=== PATIENT | female | born 1935 | race Caucasian/White ===

== ENCOUNTER 2018-04-26 09:34 | Observation (INO) | payer MEDICARE, OTHER ==
[~2018-04-26] VITALS: Ht 162.6 cm; Wt 62.7 kg
[2018-04-26 10:52] LABS: BASOPHILS % 0.2 % (0.0-1.0); EOSINOPHILS # (AUTO) 0.2 (0.0-0.4); EOSINOPHILS % 1.3 % (0.0-6.0); HEMATOCRIT 37.1 % (34.2-44.1); HEMOGLOBIN 12.2 g/dL (12.0-16.0); LYMPHOCYTES # (AUTO) 0.5 (1.0-3.2); LYMPHOCYTES % 2.5 % (18.0-39.1); MEAN CORPUSCULAR HEMOGLOBIN 29.3 pg (28-32); MEAN CORPUSCULAR HGB CONC 32.9 g/dL (31-35); MEAN CORPUSCULAR VOLUME 89.2 fL (81-99); NEUTROPHILS # (AUTO) 17.2 (2.1-6.9); NEUTROPHILS % 90.1 % (38.7-80.0); PLATELET COUNT 232 x10e3/uL (140-360); RED BLOOD COUNT 4.16 x10e6/uL (3.6-5.1); RED CELL DISTRIBUTION WIDTH 16.2 % (11.7-14.4)
[2018-04-26 10:56] LABS: INR 1.06; PARTIAL THROMBOPLASTIN TIME 27.4 seconds (23.8-35.5)
[2018-04-26 11:02] LABS: CLARITY,URINE CLEAR (CLEAR); COLOR,URINE YELLOW (YELLOW); KETONES,URINE NEGATIVE (NEGATIVE); LEUKOCYTE ESTERASE ,URINE TRACE (NEGATIVE); NITRITE,URINE NEGATIVE (NEGATIVE); PROTEIN,URINE DIPSTICK TRACE (NEGATIVE)
[2018-04-26 11:03] LABS: BILIRUBIN,URINE NEGATIVE (NEGATIVE); URINE UROBILINOGEN 0.2 mg/dL (0.2 - 1)
[2018-04-26 11:09] LABS: BACTERIA,URINE RARE /HPF; WBC,URINE (MAN) 0-5 /HPF (0-5)
[2018-04-26 11:14] LABS: ALANINE AMINOTRANSFERASE 11 IU/L (0-55); ALBUMIN 3.1 g/dL (3.5-5.0); ALBUMIN/GLOBULIN RATIO 1.1 (0.8-2.0); ALKALINE PHOSPHATASE 56 IU/L (40-150); BLOOD UREA NITROGEN 18 mg/dL (7-26); BUN/CREATININE RATIO 18 (6-25); CALCIUM 9.4 mg/dL (8.4-10.2); CARBON DIOXIDE 27 mmol/L (22-29); CHLORIDE 107 mmol/L (98-107); CREATINE KINASE 66 IU/L (29-168); CREATININE, SERUM 0.99 mg/dL (0.57-1.11); EST GLOMERULAR FILTRATION RATE 53 ML/MIN (60-); GLUCOSE 121 mg/dL (74-118); SODIUM 142 mmol/L (136-145)
--- NOTE | 2018-04-26 11:27 | Diagnostic Imaging Report ---
PROCEDURE: A single AP view of the chest. COMPARISON: None. INDICATIONS: PASSED OUT, DEHYDRATED FINDINGS: Exam limited by patient rotation. Lines/tubes: None. Lungs: The lungs are well inflated. Mild prominence of the interstitial markings bilaterally, which may reflect chronic interstitial changes. There is no evidence of consolidation or overt pulmonary edema. Pleura: There is no pleural effusion or pneumothorax. Heart and mediastinum: Cardiac silhouette is unremarkable. Pulmonary vasculature is normal. Bones: No acute bony abnormality. IMPRESSION: 1. No acute cardiopulmonary abnormalities. Abdoul Whiteside M.D. Dictated by: Abdoul Whiteside M.D. on 04/26/2018 at 11:32 Electronically approved by: Abdoul Whiteside M.D. on 04/26/2018 at 11:32
[2018-04-26] MEDS ORDERED: CEFTRIAXONE SOD 1 GM VIAL IV SCH (11:30)
[2018-04-26] MEDS ORDERED: ARICEPT5 MG (11:52)
[2018-04-26] MEDS ORDERED: CRESTOR20 MG (11:52)
[2018-04-26] MEDS ORDERED: NITROFURANTOIN100 MG (11:52)
[2018-04-26] MEDS ORDERED: CLOPIDOGREL75 MG (11:52)
[2018-04-26] MEDS ORDERED: PEPCID20 MG PO (11:56)
[2018-04-26] MEDS ORDERED: ASPIR 8181 MG PO (11:56)
--- NOTE | 2018-04-26 12:11 | Diagnostic Imaging Report ---
History:Weakness Comparison studies:None Technique: Axial images were obtained from the skull base to the vertex. Coronal and sagittal images reconstructed from the axial data. Intravenous contrast: None Findings: Scalp/skull: No abnormalities. Extra-axial spaces: No masses. No fluid collections. Brain sulci: Mildly prominent. Ventricles: Mild compensatory dilatation. No hydrocephalus. Parenchyma: Scattered small hypodensities in the supratentorial white matter are small vessel ischemic changes. Cortical-based hypodensity with associated volume loss at the right frontal pole/orbitofrontal gyrus and right temporal pole No masses, hemorrhage, acute or chronic cortical vascular insults. Sellar/suprasellar region: No abnormalities. Craniocervical junction: Patent foramen magnum. No Chiari one malformation. Incidental findings: Atherosclerotic calcifications in the carotid siphons . Impression: No acute abnormalities. Chronic findings: 1. Mild generalized volume loss. 2. Mild supratentorial white matter small vessel ischemic changes. 3. Encephalomalacia at the right orbitofrontal gyrus and right temporal pole related to remote insult Signed by: DR Jerry Russell M.D. on 04/26/2018 12:07 PM
[2018-04-26] MEDS ORDERED: ONDANSETRON HCL INJ 2 MG/ML VIAL IV PRN (12:30)
[2018-04-26] MEDS: SODIUM CHLORIDE 0.9% 1000ML 1,000 ML IV SCH ×2 (12:56→22:24)
[2018-04-26] MEDS ORDERED: CIPROFLOXACIN 200 MG/D5W 100ML 100 ML IV SCH (13:00)
--- NOTE | 2018-04-26 13:48 | History and Physical ---
HISTORY OF PRESENT ILLNESS: The patient is 83-year-old female who had a past medical history positive for apparently syncopal episodes. She is a smoker also. Patient has history of recurrent UTIs. She was seen to leave facility, smoking outside when she fainted according to the family. They did not see any seizure activity or biting the tongue or urinary incontinence. REVIEW OF SYSTEMS CARDIOVASCULAR: No chest pain or palpitation. RESPIRATORY: No shortness of breath, no cough. GASTROINTESTINAL: No nausea, vomiting, diarrhea. GENITOURINARY: No frequency, no dysuria. ALLERGIES: SHE IS APPARENTLY ALLERGIC TO SULFA DRUGS. SOCIAL HISTORY: She smokes. She does not drink alcohol. PAST MEDICAL HISTORY: She does have history of hypertension but she was taking off blood pressure medications. PHYSICAL EXAMINATION VITAL SIGNS: Blood pressure 106/61, temperature 97.6, heart rate 80 per minute, respiratory rate 20 per minute. Oxygen saturation 97%. HEART: Shows regular rhythm. Normal S1, S2 sounds. LUNGS: Clear bilaterally. ABDOMEN: Soft. EXTREMITIES: Show no evidence of cyanosis, edema or trauma. NEUROLOGIC: Alert, oriented x3. No motor deficits. LABORATORY DATA: We have a CBC--white blood count 19,000, hemoglobin 30.2, hematocrit 37.1, platelet count 232. White blood count 19.04. On the BMP--sodium 142, potassium 4.0, chloride 107, CO2 27, BUN 18, creatinine 0.99, glucose 121. Calcium 9.4. Total bilirubin 1.1. AST 25, ALT 11, alkaline phosphatase 56, creatinine kinase 66. Troponin 0.001. Total protein 5.9. Albumin 3.1, globulin 2.8. PT 13.0, INR 1.06, PTT 27.4. The urinalysis showed leukocytes and red blood cells, pH of 8.0. Urine culture is pending. CT of the head and chest x-ray has been done. There is no acute abnormality on the CT of the head except some non-generalized polar loss. Mild supratentorial white matter small vessel ischemic changes. Encephalomalacia on the right orbital frontal gyrus and right temporal pole related to remote insult. Chest x-ray showed no acute cardiopulmonary abnormality. FINAL IMPRESSION 1. Syncopal episode. 2. Sepsis secondary to urinary tract infection. PLAN OF TREATMENT: We are going to start her on ciprofloxacin 250 mg IV twice a day. Continue normal saline 75 mL an hour. Orthostatic blood pressure also. Diet will be regular diet. Going to get a neurology consult with Dr. Booth. Questions have been discussed with the family at the bedside. All the questions have been answered. Time spent around 45 to 50 minutes. Job#: [id number] [facility]
[2018-04-26 15:20] VITALS: BP 98/50
--- NOTE | 2018-04-26 15:27 | History and Physical ---
ADDENDUM TO HISTORY AND PHYSICAL We are going to order an echocardiogram and carotid Doppler for elevated blood pressure, and she is going to be on telemetry, of course. She also has a history of coronary artery disease, and she had a stent placement. We are going to resume the home medications, which include: 1. Aspirin 81 mg daily. 2. Plavix 75 mg daily. 3. Aricept 10 mg daily. 4. Pepcid 20 mg daily. 5. IV fluids at normal saline 75 mL an hour. We are going to discontinue the Rocephin because the patient's urine culture done by the other physician showed that it was resistant to ceftriaxone. We are going to discontinue the Cipro also because of interaction with Aricept. We are going to start meropenem instead. We are going to use 500 mg IV q.6 h. Job#: [id number]
[2018-04-26 16:00] VITALS: BP 98/50
[2018-04-26 16:33] VITALS: BP 98/50
[2018-04-26] MEDS: MEROPENEM 500 MG VIAL IV SCH (17:00)
[2018-04-26] MEDS ORDERED: MEROPENEM 500MG 500 MG in SODIUM CHLORIDE 0.9% 50ML 50 ML IV SCH (18:00)
[2018-04-26] MEDS: NICOTINE 14 MG/EA PATCH TOP SCH (18:12)
--- NOTE | 2018-04-26 19:13 | Consultation ---
DATE OF CONSULTATION: April 26, 2018 NEUROLOGY CONSULTATION HISTORY OF PRESENT ILLNESS: Ms. Cancino is an 83-year-old woman with past medical history significant for hyperlipidemia, coronary artery disease, dementia, and multiple urinary tract infections, who presented to the emergency center at [facility] on April 26, 2018, with syncope versus seizure. The patient reports poor sleep the night prior to admission. She reports frequent awakening to use the restroom. On the morning of admission, the patient's granddaughter came to see her. The patient was still in bed, asleep, which was unusual for her. As she tried to awaken her grandmother, Ms. Cancino's granddaughter noted the patient was somnolent and more confused than is her baseline. The granddaughter called her mother, Ms. Cancino's daughter, who came over to the patient's apartment. Not only did she observe Ms. Cancino to be somnolent and more confused than is her baseline, the daughter noted tremulousness and generalized weakness. Ms. Cancino endorsed abdominal pain, nausea, and vomiting. Shortly after the daughter's arrival, she and Ms. Cancino went to sit outside so the patient could smoke a cigarette. As they were sitting in the chairs, Ms. Cancino informed her daughter she felt like she was going to throw up. Less than 1 minute later, the patient slumped over in the chair. There was no stiffening or shaking of the extremities. There was no tongue biting or bladder/bowel incontinence. Ms. Cancino remained slumped over in her chair, unresponsive for approximately 30 seconds. Once the patient regained consciousness, she was very confused. This resolved after approximately 20 to 25 minutes. The patient's daughter notified emergency medical services immediately after the patient slumped over in her chair. Ms. Cancino was transported to the emergency center at [facility] via ambulance for further evaluation. Upon arrival in the emergency center, the patient was afebrile with a blood pressure of 97/51 mmHg, a pulse of 80 beats per minute, and an oxygen saturation of 93% on room air. The patient's neurological examination was documented as being nonfocal. Laboratory data revealed an elevated white blood cell count with a left shift. A urinalysis was suspicious for a urinary tract infection. A CT of the brain without contrast was performed and did not show evidence of recent large territorial ischemia or hemorrhage. Ms. Cancino was admitted to [facility] under observation status for further evaluation and treatment of her symptoms. Ms. Cancino does not report a history of febrile seizures. There is no known family history of seizures. The patient does endorse a prior head injury with loss of consciousness occurring approximately 15 years ago. There is no prior history of meningitis or encephalitis. The patient's daughters report Ms. Cancino has experienced similar events as described above at least 3 times since October 2017. These events generally occur in the setting of a urinary tract infection with dehydration. REVIEW OF SYSTEMS: Nausea, vomiting, abdominal pain, urinary urgency, confusion, drowsiness, and generalized weakness. Otherwise, a 12-point review of systems is negative. PAST MEDICAL HISTORY: Hyperlipidemia, coronary artery disease, multiple urinary tract infections, gastroesophageal reflux disease, leukoplakia, squamous cell carcinoma, dementia. PAST SURGICAL HISTORY: Bilateral cataract removal, cardiac catheterizations with 2 cardiac stents placed. PAST HOSPITALIZATIONS: Surgeries/procedures as listed, childbirth times 8, multiple urinary tract infections. FAMILY HISTORY: Patient's paternal and maternal grandparents are . Their medical histories are unknown. Ms. Cancino's father is from coronary artery disease with myocardial infarction. The patient's mother is . Her medical history is unknown. Ms. Cancino had one brother who is from a stroke. A second brother is alive and has coronary artery disease. Ms. Cancino had one son and 7 daughters. The son is from renal carcinoma. All of her daughters are alive and healthy. SOCIAL HISTORY: The patient is . She is a retired special education secretary. Ms. Cancino endorses current tobacco use. She has smoked 1/2 pack per day for the past for 60-plus years. The patient endorses prior occasional alcohol use. However, she no longer consumes alcohol. Patient does not report current or prior recreational drug use. HOME MEDICATIONS 1. Aspirin 81 mg by mouth daily. 2. Plavix 75 mg by mouth daily. 3. Donepezil 5 mg by mouth daily. 4. Pepcid 20 mg by mouth daily. 5. Nitrofurantoin 100 mg. 6. Rosuvastatin 20 mg by mouth at bedtime daily. ALLERGIES: SULFA. NO KNOWN FOOD ALLERGIES. NO KNOWN ALLERGIES TO LATEX. NO KNOWN ALLERGIES TO IODINE OR OTHER CONTRAST MATERIALS. PHYSICAL EXAMINATION VITAL SIGNS: Height 64 inches and weight 135 pounds. BMI 23.2 kg per meter squared. Blood pressure 98/50 mmHg. Pulse 72 beats per minute. Respiratory rate 20 breaths per minute. Oxygen saturation 95% on room air. GENERAL: Patient is awake and alert, does not appear distressed. HEENT: Normocephalic and atraumatic. Pupils are surgical. Moist mucous membranes. NECK: Supple. No appreciable thyromegaly. No appreciable carotid bruits. CARDIOVASCULAR: S1, S2, regular rate and rhythm. No murmurs, rubs, or gallops. RESPIRATORY: Clear to auscultation bilaterally. No wheezes, rhonchi or rales. EXTREMITIES: The skin is warm and dry. No clubbing, cyanosis, or edema. The posterior tibial and dorsalis pedis pulses are 2+ and symmetric. SKIN: No rashes or lesions. NEUROLOGIC EXAMINATION MEMORY/ATTENTION: The patient is awake, alert, and oriented to person, place (hospital, city, county, state), time (month and year), and situation. CRANIAL NERVES: Cranial nerve I: Not tested. Cranial nerves II, III, IV, and : Pupils are surgical. Extraocular movements intact. No nystagmus. Cranial nerve V: Sensation to light touch and pinprick is intact in the bilateral V1 through V3 distributions. Strength of the temporalis and masseter muscles is within normal limits. Cranial nerve VII: The face is symmetric as are all facial movements. Strength is within normal limits. Cranial nerve VIII: Hearing is intact to finger rub bilaterally. Cranial nerves IX and X: The soft palate elevates equally and symmetrically. Cranial nerve XI: Normal strength of the bilateral sternocleidomastoid and trapezius muscles. Cranial nerve XII: The tongue protrudes midline and moves symmetrically from side to side. STRENGTH: Bulk is normal. Strength is 5/5 in the bilateral deltoids, biceps, triceps, wrist flexors and extensors, finger flexors and extensors, intrinsic hand muscles, hip flexors, knee flexors and extensors, ankle dorsiflexion and plantar flexion, and intrinsic foot muscles. Tone is normal. DTRs: Deep tendon reflexes are 2+ and symmetric at the triceps, biceps, brachioradialis, and patellas. Deep tendon reflexes are absent and symmetric at the Achilles. Plantar responses are flexor bilaterally. SENSATION: Sensation is intact to light touch and pinprick in both arms and both legs. CEREBELLAR: Vbllst-xyal-djotwg and heel-harding movements are intact without dysmetria or other impairment. GAIT: Deferred. SPEECH: Spontaneous speech is normal without appreciable dysarthria or aphasia. Repetition is intact. INVOLUNTARY MOVEMENTS: None. PRONATOR DRIFT: None. LABORATORY DATA: Sodium 142, potassium 4.0, chloride 107, carbon dioxide 27, anion gap 12.0, BUN 18, creatinine 0.99, estimated GFR 53. VOB-mp-cpaiawanra ratio 18. Glucose 121, calcium 9.4, total bilirubin 11.1, AST 25, ALT 11, alkaline phosphatase 56. Total protein 5.9, albumin 3.1, globulin 2.8, furraon-ms-nxcagwjm ratio 1.1. Creatine kinase 66, CK-MB 0.70, troponin I less than 0.001. The CBC with differential and platelets reveals a white blood cell count of 19.04 with 90.1% neutrophils, 2.5% lymphocytes, 5.0% monocytes, 1.3% eosinophils, and 0.2% basophils. The hemoglobin and hematocrit are 12.2 and 37.1, respectively. The platelet count is 232. PT 13.0, INR 1.06, PTT 27.4. Urinalysis is significant for pH 8, trace protein, trace leukocyte esterase, and 6-10 red blood cells. DIAGNOSTIC STUDIES 1. Electrocardiogram, 04/26/2018: Sinus rhythm at 71 beats per minute with occasional preventricular contractions. 2. Chest x-ray, 04/26/2018: No acute cardiopulmonary abnormalities. 3. CT of the brain without contrast, 04/26/2018: On my review, there is no evidence of recent large territorial ischemia, hemorrhage, mass, or mass effect. There is encephalomalacia at the right orbital frontal gyrus and right temporal pole, probably a prior ischemic stroke. There is mild diffuse cerebral atrophy. There are findings compatible with mild to moderate chronic small vessel ischemic disease. ASSESSMENT AND PLAN: Ms. Cancino is an 83-year-old woman with past medical history as detailed, admitted to [facility] on April 26, 2018, with a possible seizure. At present, her neurological examination is nonfocal. Her laboratory data and other diagnostic studies have been reviewed and are documented above. It is possible the events experienced by the patient since October 2017 are seizures. The period of unresponsiveness lasts for approximately 30 seconds, which is atypical of a syncopal event. Once she regains consciousness, the patient is often very confused for 20 to 25 minutes. This period of confusion may represent a postictal phase. Prolonged confusion after a syncopal event is uncommon. Lastly, each of the events have occurred in the setting of a urinary tract infection. An infection of any sort is known to lower the seizure threshold. RECOMMENDATIONS 1. An MRI of the brain without contrast will be ordered to evaluate for structural anomalies causing the patient's seizures. Ativan 0.5 mg IV once will be operator specialist communications for the MRI of the brain. 2. A routine EEG will be ordered. 3. At the request of the patient's nurse, an order for a nicotine patch 14 mg topically daily will be placed. 4. Defer treatment of the remaining medical comorbidities to the primary and other services. Thank you for this consultation. I will continue to follow this patient while she remains in the hospital. Time spent: 70 minutes. Job#: [id number] CORNELIUS ROMANO
[2018-04-26 19:40] VITALS: BP 146/66
[2018-04-26 19:47] LABS: CREATINE KINASE MB 1.1 ng/mL (0-5.0)
[2018-04-26] MEDS ORDERED: DONEPEZIL HCL 5 MG TAB PO SCH (21:00)
[2018-04-26 22:46] VITALS: BP 146/66
[2018-04-27] MEDS: MEROPENEM 500 MG VIAL IV SCH ×5 (00:14→17:42)
[2018-04-27 00:55] VITALS: BP 99/84
[2018-04-27 05:00] VITALS: BP 144/79
[2018-04-27 05:49] LABS: BASOPHILS % 0.2 % (0.0-1.0); EOSINOPHILS % 6.2 % (0.0-6.0); HEMATOCRIT 31.9 % (34.2-44.1); HEMOGLOBIN 10.6 g/dL (12.0-16.0); LYMPHOCYTES # (AUTO) 1.3 (1.0-3.2); LYMPHOCYTES % 7.7 % (18.0-39.1); MEAN CORPUSCULAR HEMOGLOBIN 29.4 pg (28-32); MEAN CORPUSCULAR HGB CONC 33.2 g/dL (31-35); MEAN CORPUSCULAR VOLUME 88.6 fL (81-99); MONOCYTES # (AUTO) 0.7 (0.2-0.8); MONOCYTES % 4.3 % (4.4-11.3); NEUTROPHILS # (AUTO) 13.2 (2.1-6.9); NEUTROPHILS % 81.1 % (38.7-80.0); PLATELET COUNT 191 x10e3/uL (140-360); RED CELL DISTRIBUTION WIDTH 16.7 % (11.7-14.4)
[2018-04-27 06:24] LABS: CREATINE KINASE 62 IU/L (29-168)
[2018-04-27 06:48] LABS: ANION GAP 11.9 mmol/L (8-16); BLOOD UREA NITROGEN 16 mg/dL (7-26); BUN/CREATININE RATIO 19 (6-25); CALCIUM 8.2 mg/dL (8.4-10.2); CARBON DIOXIDE 23 mmol/L (22-29); CHLORIDE 109 mmol/L (98-107); CREATININE, SERUM 0.84 mg/dL (0.57-1.11); EST GLOMERULAR FILTRATION RATE > 60 ML/MIN (60-); GLUCOSE 91 mg/dL (74-118); POTASSIUM 3.9 mmol/L (3.5-5.1); SODIUM 140 mmol/L (136-145)
[2018-04-27] MEDS ORDERED: CLOPIDOGREL BISULFATE 75 MG TAB PO SCH (07:30)
[2018-04-27 08:24] VITALS: BP 103/55
[2018-04-27] MEDS ORDERED: LORAZEPAM INJ 2 MG/ML VIAL IV NR (08:45)
[2018-04-27 09:00] VITALS: BP 103/55
[2018-04-27] MEDS: LORAZEPAM INJ 2 MG/ML VIAL IV ONE ×2 (09:00→09:02)
[2018-04-27] MEDS ORDERED: FAMOTIDINE 20 MG TAB PO SCH (09:00)
[2018-04-27] MEDS ORDERED: ASPIRIN 81 MG CHEW TAB PO SCH (09:00)
[2018-04-27] MEDS: NICOTINE 14 MG/EA PATCH TOP SCH (10:29)
--- NOTE | 2018-04-27 10:49 | Diagnostic Imaging Report ---
History: Possible seizure Comparison studies: CT head 04/26/2018 Technique: Sagittal T2; axial DWI, FLAIR, MPGR, T1, Coronal FLAIR. Intravenous contrast: None Findings: Scalp: Normal in signal . No masses . Bone marrow: Normal in signal intensity. Extra-axial: No masses, no fluid collections. Brain sulci: Mildly prominent diffusely. Moderately prominent bilateral sylvian fissures. Ventricles: Mildly prominent more significant at the temporal horns . No hydrocephalus . Parenchyma: Cortical based T2/flair hyperintensity with associated volume loss at the right frontal and temporal poles. Punctate hemosiderin stain in the left frontal pole. Scattered T2/flair hyperintensities of the periventricular and deep white matter. Similar changes at the polly. No masses, hemorrhage or acute vascular insults. Suprasellar region: No abnormalities. Craniocervical junction: No abnormalities. Patent foramen magnum. No Chiari one malformation. Vessels: Normal flow-voids in the arteries and sinuses. Fluid at the posterior aspect of the left mastoid air cells, related to nonspecific inflammatory changes. Bilateral cataract surgery changes. IMPRESSION: 1. No acute abnormalities. 2. Mild to moderate chronic microvascular ischemic changes of the white matter. 3. Moderate volume loss at the bilateral temporal lobes, which can be seen in some dementias such as Alzheimer's. 4. Encephalomalacia at the right orbitofrontal gyrus, right superior frontal gyrus and right temporal pole related to remote insult. 5. Nonspecific mild inflammatory changes of the left mastoid air cells. Signed by: DR Jerry Russell M.D. on 04/27/2018 10:46 AM
[2018-04-27 11:43] VITALS: BP 112/59
[2018-04-27] MEDS: SODIUM CHLORIDE 0.9% 1000ML 1,000 ML IV SCH (15:01)
--- NOTE | 2018-04-27 16:45 | Progress Note ---
DATE: April 27, 2018 INTERNAL MEDICINE PROGRESS NOTE SUBJECTIVE: The patient came in with a syncopal episode. The workup is in progress right now. She is feeling a lot better. OBJECTIVE VITAL SIGNS: Blood pressure 112/59. Temperature 96.9. Heart rate 71 per minute. Respiratory rate is 18 per minute. Oxygen saturation 94%. HEART: Regular rhythm. No murmur. No extra sounds. LUNGS: Clear bilaterally. ABDOMEN: Soft. EXTREMITIES: Show no evidence of cyanosis, edema or trauma. FINAL IMPRESSION: 1. Syncopal episode, rule out seizures. 2. Urinary tract infection with possible sepsis. 3. Coronary artery disease, status post stent. PLAN OF TREATMENT: EEG is in progress Dr. Booth will read the EEG and decide whether or not she needs to be discharged on an antiseizure medication. Echocardiogram and carotid Doppler have been done and the report is pending. In the meantime continue telemetry. Continue orthostatic blood pressure management and continue aspirin 81 mg daily. Plavix 75 mg daily. Donazepril mg daily. Pepcid 20 mg daily. She is on meropenem 500 mg IV q.6 hours because of the UTI. Nicotine [address] Titus will be covering for me starting today at 4:30 p.m. until April 30 at 7 p.m. Job#: [id number]
[2018-04-27 17:16] VITALS: BP 129/64
--- NOTE | 2018-04-27 18:35 | Electroencephalogram ---
DATE OF STUDY: April 27, 2018 REQUESTING PHYSICIAN: Dr. Yesy Booth PATIENT HISTORY: This 83-year-old woman with a history of syncope versus seizure is having an EEG for evaluation of epileptiform activity. The patient is not taking any medications that might affect the EEG. TECHNIQUE: This is a routine, portable EEG, recorded digitally, using the international 10/20 electrode placement system, and done in the inpatient setting with the patient awake. The EEG is adequate for interpretation. DESCRIPTION: Well organized, well sustained, 9 to 10 Hz activity is best seen symmetrically in the posterior head regions. No focal or epileptiform activity is recorded. Sleep is not recorded. Photic stimulation does not produce a driving response. Hyperventilation is not performed. INTERPRETATION: This is a normal EEG with the patient awake. No epileptiform discharges are seen. Job#: [id number] DG MTDD
== END 2018-04-27 18:04 | disposition home or self-care (01) ==
LOC: ER 09:34 → ERHOLD 12:21 → IMCU 14:09
PROVIDERS: ADMIT Internal Medicine; ATTEND Internal Medicine
DX: R55 Syncope and collapse (principal); I25.10 Atherosclerotic heart disease of native coronary artery without angina pectoris; N30.00 Acute cystitis without hematuria; F17.210 Nicotine dependence, cigarettes, uncomplicated; Z87.440 Personal history of urinary (tract) infections; I10 Essential (primary) hypertension; E78.5 Hyperlipidemia, unspecified; Z95.5 Presence of coronary angioplasty implant and graft; Z88.2 Allergy status to sulfonamides; F03.90 Unspecified dementia, unspecified severity, without behavioral disturbance, psychotic disturbance, mood disturbance, and anxiety
CPT/HCPCS: 36415 ×2; 70450; 70551; 71045; 80048; 80053; 81001; 82550 ×2; 82553 ×2; 84484 ×2; 85025 ×2; 85610; 85730; 87086; 93005 ×2; 93306; 93880; 95812; 96360; 97161; 99285; G0378 ×2; G8978; G8979; G8980; J0696; J2060; J2185 ×2; J2405; J7030

== ENCOUNTER 2018-05-16 02:34 | Inpatient (IN) | payer MEDICARE, OTHER ==
[~2018-05-16] VITALS: Ht 162.6 cm; Wt 64.1 kg
[2018-05-16] VITALS (7 sets, daily range): BP systolic 95–116; BP diastolic 48–57
[~2018-05-16 02:34] MED LIST: ARICEPT5 MG PO; ASPIR 8181 MG PO; CLOPIDOGREL75 MG PO; CRESTOR20 MG PO; NITROFURANTOIN100 MG; PEPCID20 MG PO
[2018-05-16] MEDS ORDERED: ONDANSETRON HCL INJ 2 MG/ML VIAL IV STA (02:43)
[2018-05-16] MEDS ORDERED: ACETAMINOPHEN 1000 MG/100 ML IV STA (02:43)
[2018-05-16] MEDS ORDERED: SODIUM CHLORIDE 0.9% 1000ML 1,000 ML IV ONE ×2 (02:45→04:00)
[2018-05-16] MEDS ORDERED: ALBUTEROL/IPRATROPIUM 3 ML NEB NEB ONE (03:00)
[2018-05-16 03:07] LABS: BASOPHILS # (AUTO) 0.1 (0.0-0.1); BASOPHILS % 0.3 % (0.0-1.0); EOSINOPHILS # (AUTO) 1.7 (0.0-0.4); EOSINOPHILS % 10.4 % (0.0-6.0); HEMATOCRIT 38.6 % (34.2-44.1); HEMOGLOBIN 12.9 g/dL (12.0-16.0); LYMPHOCYTES # (AUTO) 0.8 (1.0-3.2); LYMPHOCYTES % 4.6 % (18.0-39.1); MEAN CORPUSCULAR HEMOGLOBIN 29.4 pg (28-32); MEAN CORPUSCULAR HGB CONC 33.4 g/dL (31-35); MEAN CORPUSCULAR VOLUME 87.9 fL (81-99); MONOCYTES # (AUTO) 0.7 (0.2-0.8); MONOCYTES % 4.2 % (4.4-11.3); NEUTROPHILS # (AUTO) 13.2 (2.1-6.9); NEUTROPHILS % 80.2 % (38.7-80.0); PLATELET COUNT 226 x10e3/uL (140-360); RED BLOOD COUNT 4.39 x10e6/uL (3.6-5.1); RED CELL DISTRIBUTION WIDTH 16.4 % (11.7-14.4)
[2018-05-16 03:33] LABS: ALANINE AMINOTRANSFERASE 13 IU/L (0-55); ALBUMIN 3.4 g/dL (3.5-5.0); ALBUMIN/GLOBULIN RATIO 1.1 (0.8-2.0); ALKALINE PHOSPHATASE 57 IU/L (40-150); ANION GAP 15.5 mmol/L (8-16); BLOOD UREA NITROGEN 20 mg/dL (7-26); BUN/CREATININE RATIO 24 (6-25); CALCIUM 9.1 mg/dL (8.4-10.2); CARBON DIOXIDE 25 mmol/L (22-29); CHLORIDE 106 mmol/L (98-107); CREATINE KINASE 35 IU/L (29-168); CREATININE, SERUM 0.83 mg/dL (0.57-1.11); EST GLOMERULAR FILTRATION RATE > 60 ML/MIN (60-); GLUCOSE 98 mg/dL (74-118); POTASSIUM 3.5 mmol/L (3.5-5.1); SODIUM 143 mmol/L (136-145)
[2018-05-16 03:39] LABS: CLARITY,URINE CLEAR (CLEAR); COLOR,URINE YELLOW (YELLOW)
[2018-05-16 03:40] LABS: BILIRUBIN,URINE NEGATIVE (NEGATIVE); KETONES,URINE TRACE (NEGATIVE); LEUKOCYTE ESTERASE ,URINE 1+ (NEGATIVE); NITRITE,URINE NEGATIVE (NEGATIVE); PROTEIN,URINE DIPSTICK NEGATIVE (NEGATIVE); URINE UROBILINOGEN 0.2 mg/dL (0.2 - 1); WBC,URINE (MAN) 21-50 /HPF (0-5)
[2018-05-16 03:41] LABS: BACTERIA,URINE RARE /HPF; EPITHELIAL CELLS,URINE RARE /LPF; RBC,URINE 0-5 /HPF (0-5); TRANSITIONAL EPI CELLS,URINE RARE
[2018-05-16 03:49] LABS: EOSINOPHILS % (MANUAL) 14 % (0-7); LYMPHOCYTES % (MANUAL) 9 % (19-48); MONOCYTES % (MANUAL) 1 % (3.4-9.0); NEUTROPHILS % (MANUAL) 76 % (40-74)
--- NOTE | 2018-05-16 03:49 | Diagnostic Imaging Report ---
EXAMINATION: CHEST SINGLE (PORTABLE) INDICATION: Fever. COMPARISON: 04/26/2018 FINDINGS: TUBES and LINES: None. LUNGS: Lungs are well inflated. There are bibasilar atelectasis. There is mild prominence of the central pulmonary vasculature, consistent with pulmonary venous congestion. Biapical scarring present. PLEURA: No pleural effusion or pneumothorax. HEART AND MEDIASTINUM: Cardiac size is mildly enlarged. There are atherosclerotic calcifications within the aorta. BONES AND SOFT TISSUES: No acute osseous lesion. Soft tissues are unremarkable. UPPER ABDOMEN: No free air under the diaphragm. IMPRESSION: No acute thoracic abnormality. Signed by: Dr. Fabio Boswell M.D. on 05/16/2018 3:46 AM
[2018-05-16 03:50] LABS: PLATELET ESTIMATE ADEQUATE; PLATELET MORPHOLOGY COMMENT NORMAL; RBC MORPHOLOGY COMMENT NORMAL
[2018-05-16] MEDS ORDERED: ALBUTEROL/IPRATROPIUM 3 ML NEB NEB PRN (04:00)
[2018-05-16] MEDS ORDERED: ONDANSETRON HCL INJ 2 MG/ML VIAL IV PRN (04:00)
[2018-05-16] MEDS: CEFTRIAXONE SOD 1 GM VIAL IV SCH (04:26)
[2018-05-16] MEDS ORDERED: SODIUM CHLORIDE 0.9% 1000ML 0 ML ONE (05:38)
[2018-05-16] MEDS: NICOTINE 14 MG/EA PATCH TOP SCH (09:00)
[2018-05-16] MEDS: ASPIRIN 81 MG CHEW TAB PO SCH (14:00)
[2018-05-16] MEDS: CLOPIDOGREL BISULFATE 75 MG TAB PO SCH (14:00)
[2018-05-16] MEDS ORDERED: IOPAMIDOL 370 MG/ML 200 ML INFUS..BTL INJ ONE (17:31)
[2018-05-16] MEDS ORDERED: SODIUM CHLORIDE 0.9% 50ML 50 ML ONE (17:31)
--- NOTE | 2018-05-16 17:59 | Diagnostic Imaging Report ---
PROCEDURE: CT ABDOMEN AND PELVIS WITH CONTRAST TECHNIQUE: The abdomen and pelvis were scanned utilizing a multidetector helical scanner from the diaphragm to the lesser trochanter after the IV administration of 100 cc of Isovue 370 and the oral administration of water. Coronal and sagittal multiplanar reformations were obtained. COMPARISON: None. INDICATIONS: lower abdominal pain FINDINGS: Somewhat limited examination due to motion artifact. LOWER THORAX: Bibasilar atelectasis HEPATOBILIARY: No focal hepatic lesions. No radiopaque gallstones. The common bile duct is prominent, measuring 1.1 cm. SPLEEN: No splenomegaly. PANCREAS: No focal masses. The pancreatic duct is prominent, but it is visible all the way to the level of the ampulla. ADRENALS: No adrenal nodules. KIDNEYS/URETERS: No hydronephrosis, stones, or solid mass lesions. There are scarlike opacities in both kidneys. A surgical clip adjacent to the left kidney suggests prior renal surgery. Correlate with history. PELVIC ORGANS/BLADDER: The bladder is collapsed due to the presence of a Bueno catheter. PERITONEUM / RETROPERITONEUM: No free air or fluid. LYMPH NODES: No lymphadenopathy. VESSELS: Severe atherosclerotic calcifications of the aorta and its branches. There is mild ectasia of the infrarenal abdominal aorta measuring up to 2.4 cm. GI TRACT: No distention or wall thickening. There are numerous sigmoid diverticula, but no evidence of acute inflammation. The appendix is normal. 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 Degenerative changes of the right hip. IMPRESSION: No specific findings to account for the patient's lower abdominal pain. The common bile duct is mildly dilated, measuring 1.1 cm. Consider right upper quadrant ultrasound to evaluate for the presence of gallstones. Dictated by: Philip Sinclair M.D. on 05/16/2018 at 18:05 Electronically approved by: Philip Sinclair M.D. on 05/16/2018 at 18:05
[2018-05-16] MEDS: DONEPEZIL HCL 5 MG TAB PO SCH (19:34)
[2018-05-17] VITALS (8 sets, daily range): BP systolic 118–137; BP diastolic 56–63
[2018-05-17] MEDS: CEFTRIAXONE SOD 1 GM VIAL IV SCH (04:20)
[2018-05-17 05:01] LABS: BASOPHILS # (AUTO) 0.1 (0.0-0.1); BASOPHILS % 0.5 % (0.0-1.0); EOSINOPHILS # (AUTO) 6.9 (0.0-0.4); EOSINOPHILS % 47.1 % (0.0-6.0); HEMATOCRIT 32.1 % (34.2-44.1); HEMOGLOBIN 10.6 g/dL (12.0-16.0); LYMPHOCYTES # (AUTO) 1.9 (1.0-3.2); LYMPHOCYTES % 13.2 % (18.0-39.1); MEAN CORPUSCULAR HEMOGLOBIN 29.9 pg (28-32); MEAN CORPUSCULAR VOLUME 90.4 fL (81-99); MONOCYTES # (AUTO) 0.6 (0.2-0.8); MONOCYTES % 4.1 % (4.4-11.3); NEUTROPHILS # (AUTO) 5.1 (2.1-6.9); NEUTROPHILS % 34.8 % (38.7-80.0); PLATELET COUNT 204 x10e3/uL (140-360); RED BLOOD COUNT 3.55 x10e6/uL (3.6-5.1); RED CELL DISTRIBUTION WIDTH 16.8 % (11.7-14.4)
[2018-05-17 05:35] LABS: ALANINE AMINOTRANSFERASE 11 IU/L (0-55); ALBUMIN 2.6 g/dL (3.5-5.0); ALKALINE PHOSPHATASE 43 IU/L (40-150); ANION GAP 11.1 mmol/L (8-16); BLOOD UREA NITROGEN 18 mg/dL (7-26); BUN/CREATININE RATIO 22 (6-25); CALCIUM 8.5 mg/dL (8.4-10.2); CARBON DIOXIDE 27 mmol/L (22-29); CHLORIDE 108 mmol/L (98-107); CREATININE, SERUM 0.81 mg/dL (0.57-1.11); EST GLOMERULAR FILTRATION RATE > 60 ML/MIN (60-); GLUCOSE 88 mg/dL (74-118); POTASSIUM 4.1 mmol/L (3.5-5.1); SODIUM 142 mmol/L (136-145)
[2018-05-17 06:49] LABS: EOSINOPHILS % (MANUAL) 60 % (0-7); LYMPHOCYTES % (MANUAL) 8 % (19-48); MONOCYTES % (MANUAL) 1 % (3.4-9.0); NEUTROPHILS % (MANUAL) 31 % (40-74)
[2018-05-17 06:51] LABS: PLATELET ESTIMATE ADEQUATE; PLATELET MORPHOLOGY COMMENT NORMAL; RBC MORPHOLOGY COMMENT NORMAL
[2018-05-17] MEDS: FAMOTIDINE 20 MG TAB PO SCH (07:30)
[2018-05-17] MEDS: ASPIRIN 81 MG CHEW TAB PO SCH (09:00)
[2018-05-17] MEDS: CLOPIDOGREL BISULFATE 75 MG TAB PO SCH (09:00)
[2018-05-17] MEDS: NICOTINE 14 MG/EA PATCH TOP SCH (09:00)
[2018-05-17] MEDS: DONEPEZIL HCL 5 MG TAB PO SCH (19:57)
[2018-05-18 01:09] VITALS: BP 133/76
[2018-05-18] MEDS: CEFTRIAXONE SOD 1 GM VIAL IV SCH (03:48)
[2018-05-18 05:02] LABS: BASOPHILS # (AUTO) 0.1 (0.0-0.1); BASOPHILS % 0.5 % (0.0-1.0); EOSINOPHILS # (AUTO) 7.4 (0.0-0.4); EOSINOPHILS % 58.5 % (0.0-6.0); HEMOGLOBIN 11.1 g/dL (12.0-16.0); LYMPHOCYTES # (AUTO) 2.2 (1.0-3.2); MEAN CORPUSCULAR HEMOGLOBIN 29.7 pg (28-32); MEAN CORPUSCULAR HGB CONC 32.6 g/dL (31-35); MEAN CORPUSCULAR VOLUME 90.9 fL (81-99); MONOCYTES # (AUTO) 0.7 (0.2-0.8); MONOCYTES % 5.7 % (4.4-11.3); NEUTROPHILS # (AUTO) 2.3 (2.1-6.9); NEUTROPHILS % 18.1 % (38.7-80.0); PLATELET COUNT 222 x10e3/uL (140-360); RED BLOOD COUNT 3.74 x10e6/uL (3.6-5.1); RED CELL DISTRIBUTION WIDTH 16.5 % (11.7-14.4)
[2018-05-18 05:23] LABS: ANION GAP 12.7 mmol/L (8-16); BLOOD UREA NITROGEN 15 mg/dL (7-26); BUN/CREATININE RATIO 19 (6-25); CALCIUM 8.8 mg/dL (8.4-10.2); CARBON DIOXIDE 25 mmol/L (22-29); CHLORIDE 105 mmol/L (98-107); CREATININE, SERUM 0.77 mg/dL (0.57-1.11); EST GLOMERULAR FILTRATION RATE > 60 ML/MIN (60-); GLUCOSE 82 mg/dL (74-118); POTASSIUM 3.7 mmol/L (3.5-5.1); SODIUM 139 mmol/L (136-145)
[2018-05-18 05:24] VITALS: BP 138/63
[2018-05-18 08:02] LABS: BAND NEUTROPHILS % (MANUAL) 4 %; EOSINOPHILS % (MANUAL) 48 % (0-7); LYMPHOCYTES % (MANUAL) 23 % (19-48); MONOCYTES % (MANUAL) 4 % (3.4-9.0); NEUTROPHILS % (MANUAL) 20 % (40-74); NUCLEATED RED BLOOD CELLS 1
[2018-05-18 08:03] LABS: ANISOCYTOSIS MODERATE; HYPOCHROMASIA SLIGHT; PLATELET ESTIMATE ADEQUATE; PLATELET MORPHOLOGY COMMENT NORMAL; POIKILOCYTOSIS SLIGHT; RBC MORPHOLOGY COMMENT NORMAL
[2018-05-18] MEDS: ASPIRIN 81 MG CHEW TAB PO SCH (10:32)
[2018-05-18] MEDS: FAMOTIDINE 20 MG TAB PO SCH (10:32)
[2018-05-18] MEDS: NICOTINE 14 MG/EA PATCH TOP SCH (10:32)
[2018-05-18] MEDS: CLOPIDOGREL BISULFATE 75 MG TAB PO SCH (10:32)
[2018-05-18 13:08] VITALS: BP 127/58
--- NOTE | 2018-05-30 16:41 | Discharge Summary ---
The patient is an 83-year-old female with past medical history positive for syncopal episode at home. She does not smoke. She has a history of recurrent UTIs. Patient had a CT of the head which showed no significant abnormality except for generalized atrophy, some ischemic changes, encephalomalacia in the right orbital frontal gyrus at the right temporal lobe related to a remove insult. Chest x-ray came back negative. She was started on ciprofloxacin and IV fluids. Systolic blood pressure was ordered. She was started on a regular diet. Dr. Yesy Booth, neurology, was consulted on the case. She was started on meropenem due to the urine culture report and the interactions of Cipro with Aricept. She was also on aspirin, Plavix, Aricept, Pepcid and IV fluids during the stay here at the hospital. An electroencephalogram was done by Dr. Booth. The preliminary report was that there was no evidence of seizures. Patient was discharged by Dr. Titus who was covering for me during the weekend. FINAL IMPRESSION: 1. Syncopal episode. 2. Urinary tract infection. 3. Coronary artery disease. As I said, Dr. Titus discharged the patient. Please refer to the list of medications that he prescribed upon discharge for the patient. JEREMY CRABTREE MD Job#: [id number]
--- NOTE | 2018-06-21 01:09 | Discharge Summary ---
CHIEF COMPLAINT: Fever, leukocytosis, UTI. FINAL DIAGNOSES: 1. Chronic obstructive pulmonary disease. 2. Peripheral vascular disease. 3. Recurrent urinary tract infection. DISPOSITION: Home. [age]old female with known history of hypertension, coronary artery disease, hypothyroidism, congestive heart failure, COPD, osteoarthritis, hyperlipidemia. Brought to the ER with a sudden onset of shaky chills, associated with nausea and vomiting. She has a history of recent UTIs, recently treated with a course of Macrobid. She states of no chest pain, no shortness of breath, however, she has had some constipation. She underwent review and evaluation in the emergency room. Abdomen was showing evidence of moderate tenderness to palpation, located mostly in the suprapubic area; and with further monitoring, review of data, admission was made for care regarding issues of nausea and vomiting, UTI, questionable sepsis, hypertension, constipation, coronary artery disease. Will begin IV fluids. Start IV antibiotics. Obtain cultures of urine as well as blood. From the ER, she was placed on the med-surg floor. She was on a cardiac diet. She was receiving respiratory treatments. She was on IV fluids, started on ceftriaxone 1 g IV q.24. Her labs were revealing stable electrolytes. Kidney functions stable. Glucose 98. CBC: Hemoglobin of 12.9 [place] [address]. With further care, she was doing better overall, responding well to her medication, she was also continuing on her daily meds. [place] [id number], [place] [id number]. No other complaints were noted. She was cleared for discharge and she was able to be released home on May 18, 2018 in good condition. EKGs are showing normal sinus rhythm, left axis deviation, septal infarct, age undetermined. With discharge, she will be on a diet as tolerated. No equipment or supplies necessary. No drains or Bu[place] are needed. Activity level as directed by myself. She will be following up with her PCP within 7-10 days. Instructed to return to the ER if she has any symptoms that reoccur. She will be continuing on aspirin 81 mg daily, clopidogrel 75 mg daily, Aricept 5 mg daily, Pepcid 20 mg daily, Crestor 20 mg daily. Dictated By: LOREN Carlos Job#: [id number]
--- OUTSIDE RECORDS SUMMARY | 2018-07-05 01:53 | XMS REPORT | Continuity of Care Document ---
Author Author [facility] Organization [facility] Address [address] [place] [address] Phone Unavailable Care Team Providers Care Wire Winder Name Role Phone KATHLEEN ESTEVES MD PCP Unavailable Advance Directives Directive Response Recorded Date/Time Does the patient have an advance directive? No 04/26/18 4:21pm If yes, is advance directive on file with [facility]? No 04/26/18 4:21pm If not on file with [facility] will patient provide a copy? No 04/26/18 4:21pm Do you have a Directive to Physician? No 04/26/18 9:59am Do you have a Medical Power of Continuous Drier Operator? No 04/26/18 9:59am Do you have an out of hospital Do Not Resuscitate Order? No 04/26/18 9:59am Do you have any special needs we should be aware of? No 04/26/18 9:59am Do you have a support person here with you today? Yes 04/26/18 9:59am Did patient receive Notice of Privacy Practices? Yes 04/26/18 9:59am Did patient receive patient rights and responsibilities? Yes 04/26/18 9:59am Problems No problem information available. Medications Current Home Medications Medication Dose Units Route Directions Days Qty Instructions Start Date Aspirin (Aspir 81) 81 Mg Tablet.dr Mg Oral Daily Clopidogrel Bisulfate (Clopidogrel) 75 Mg Tablet 12 Donepezil Hcl (Aricept) 5 Mg Tablet 30 Famotidine (Pepcid) 20 Mg Tablet 20 Mg Oral Daily 60 Tab Nitrofurantoin Macrocrystal (Nitrofurantoin) 100 Mg Capsule 14 Rosuvastatin Calcium (Crestor) 20 Mg Tablet 90 Social History Smoking Status Start Date Stop Date Never Smoker Hospital Discharge Instructions No hospital discharge instruction information available. Plan of Care Discharge Date 04/27/18 6:04pm Disposition HOME, SELF-CARE Instructions/Education Provided Syncope Prescriptions See Medication Section Functional Status Query Response Date Recorded FUNCTIONAL STATUS . April 26, 2018 4:27pm Assistive Devices None April 26, 2018 4:33pm Ambulation Ability Independent April 26, 2018 4:33pm Toileting Ability Independent April 26, 2018 4:33pm Allergies, Adverse Reactions, Alerts Allergen Type Severity Reaction Status Last Updated Sulfa (Sulfonamide Antibiotics) Allergy Intermediate Active 04/26/18 Immunizations No immunization information available. Vital Signs Acute Vital Signs Vital Response Date/Time Temperature (Fahrenheit) 96.8 degrees F (97.6 - 99.5) 04/27/2018 5:16pm Pulse Pulse Rate (adult) 83 bpm (60 - 90) 04/27/2018 5:16pm Respiratory Rate 18 bpm (12 - 24) 04/27/2018 5:16pm Blood Pressure 129/64 mm Hg 04/27/2018 5:16pm Height 5 ft 4 in 04/26/2018 10:06am Weight 138.25 lb 04/27/2018 12:55am Body Mass Index 23.7 kg/m^2 04/27/2018 12:55am Results Laboratory Results Test Name Result Units Flags Reference Collection Date/Time Result Date/ Time Comments White Blood Count 16.22 x10e3/uL H 4.8-10.8 04/27/2018 5:20am 2017 5:51am Red Blood Count 3.60 x10e6/uL 3.6-5.1 04/27/2018 5:20am 04/27/2018 5: 51am Hemoglobin 10.6 g/dL L 12.0-16.0 04/27/2018 5:20am 04/27/2018 5:51am Hematocrit 31.9 % L 34.2-44.1 04/27/2018 5:04/27/2018 5:51am Mean Corpuscular Volume 88.6 fL 81-99 04/27/2018 5:04/27/2018 5: 51am Mean Corpuscular Hemoglobin 29.4 pg 28-32 04/27/2018 5:04/27/2018 5:51am Mean Corpuscular Hemoglobin Concent 33.2 g/dL 31-35 04/27/2018 5:04/27/2018 5:51am Red Cell Distribution Width 16.7 % H 11.7-14.4 04/27/2018 5:2017 5:51am Platelet Count 191 x10e3/uL 140-360 04/27/2018 5:04/27/2018 5: 51am Neutrophils (%) (Auto) 81.1 % H 38.7-80.0 04/27/2018 5:04/27/2018 5 :51am Lymphocytes (%) (Auto) 7.7 % L 18.0-39.1 04/27/2018 5:04/27/2018 5: 51am Monocytes (%) (Auto) 4.3 % L 4.4-11.3 04/27/2018 5:04/27/2018 5: 51am Eosinophils (%) (Auto) 6.2 % H 0.0-6.0 04/27/2018 5:04/27/2018 5: 51am Basophils (%) (Auto) 0.2 % 0.0-1.0 04/27/2018 5:04/27/2018 5:51am IM GRANULOCYTES % 0.5 % 0.0-1.0 04/27/2018 5:04/27/2018 5:51am Neutrophils # (Auto) 13.2 H 2.1-6.9 04/27/2018 5:04/27/2018 5: 51am Lymphocytes # (Auto) 1.3 1.0-3.2 04/27/2018 5:04/27/2018 5:51am Monocytes # (Auto) 0.7 0.2-0.8 04/27/2018 5:04/27/2018 5:51am Eosinophils # (Auto) 1.0 H 0.0-0.4 04/27/2018 5:20am 04/27/2018 5: 51am Basophils # (Auto) 0.0 0.0-0.1 04/27/2018 5:20am 04/27/2018 5:51am Absolute Immature Granulocyte (auto 0.08 x10e3/uL 0-0.1 04/27/2018 5: 20am 04/27/2018 5:51am Prothrombin Time 13.0 seconds 11.9-14.5 04/26/2018 9:35am 04/26/2018 11 :01am Prothromb Time International Ratio 1.06 04/26/2018 9:35am 2017 11:01am Oral Anticoagulant Therapy INR Values: 1. Low Intensity Therapy 1.5 - 2.0 2. Moderate Intensity Therapy 2.0 - 3.0 3. High Intensity Therapy(1) 2.5 - 3.5 4. High Intensity Therapy(2) 3.0 - 4.0 5. Panic Value INR > 5.0 Activated Partial Thromboplast Time 27.4 seconds 23.8-35.5 04/26/2018 9: 35am 04/26/2018 11:01am Urine Color YELLOW YELLOW 04/26/2018 9:35am 04/26/2018 11:03am Urine Clarity CLEAR CLEAR 04/26/2018 9:35am 04/26/2018 11:03am Urine Specific [place] 1.015 1.010-1.025 04/26/2018 9:35am 2017 11:03am Urine pH 8 H 5 - 7 04/26/2018 9:35am 04/26/2018 11:03am Urine Leukocyte Esterase TRACE H NEGATIVE 04/26/2018 9:35am 2017 11:03am Urine Nitrite NEGATIVE NEGATIVE 04/26/2018 9:35am 04/26/2018 11:03am Urine Protein TRACE H NEGATIVE 04/26/2018 9:35am 04/26/2018 11:03am Urine Glucose (UA) NEGATIVE NEGATIVE 04/26/2018 9:35am 04/26/2018 11: 03am Urine Ketones NEGATIVE NEGATIVE 04/26/2018 9:35am 04/26/2018 11:03am Urine Urobilinogen 0.2 mg/dL 0.2 - 1 04/26/2018 9:35am 04/26/2018 11: 03am Urine Bilirubin NEGATIVE NEGATIVE 04/26/2018 9:35am 04/26/2018 11: 03am Urine Blood NEGATIVE NEGATIVE 04/26/2018 9:35am 04/26/2018 11:03am Urine WBC 0-5 /HPF 0-5 04/26/2018 9:35am 04/26/2018 11:09am Urine RBC 6-10 /HPF H 0-5 04/26/2018 9:35am 04/26/2018 11:09am Urine Bacteria RARE /HPF NONE 04/26/2018 9:35am 04/26/2018 11:09am Urine Epithelial Cells NONE /LPF NONE 04/26/2018 9:35am 04/26/2018 11: 09am Sodium Level 140 mmol/L 136-145 04/27/2018 5:30am 04/27/2018 6:49am Potassium Level 3.9 mmol/L 3.5-5.1 04/27/2018 5:30am 04/27/2018 6:49am Chloride Level 109 mmol/L H 98-107 04/27/2018 5:30am 04/27/2018 6:49am Carbon Dioxide Level 23 mmol/L 22-04/27/2018 5:30am 04/27/2018 6: 49am Anion Gap 11.9 mmol/L 8-04/27/2018 5:30am 04/27/2018 6:49am Blood Urea Nitrogen 16 mg/dL 7-04/27/2018 5:30am 04/27/2018 6:49am Creatinine 0.84 mg/dL 0.57-1.11 04/27/2018 5:30am 04/27/2018 6:49am BUN/Creatinine Ratio 19 6-04/27/2018 5:3004/27/2018 6:49am Estimat Glomerular Filtration Rate > 60 ML/MIN 60- 04/27/2018 5:30 6:49am Ranges were taken from the National Kidney Disease Education Program and the National [employer] literature. Reference ranges: 60 or greater: Normal 16-59 (for 3 consecutive months): Chronic kidney disease 15 or less: Kidney failure Glucose Level 91 mg/dL 74-118 04/27/2018 5:3004/27/2018 6:49am Calcium Level 8.2 mg/dL L 8.4-10.2 04/27/2018 5:30am 04/27/2018 6:49am Total Bilirubin 1.1 mg/dL 0.2-1.2 04/26/2018 9:35am 04/26/2018 11:14am Aspartate Amino Transf (AST/SGOT) 25 IU/L 5-34 04/26/2018 9:35am 2017 11:14am Alanine Aminotransferase (ALT/SGPT) 11 IU/L 0-55 04/26/2018 9:35am 11:14am Total Protein 5.9 g/dL L 6.5-8.1 04/26/2018 9:35am 04/26/2018 11:14am Albumin 3.1 g/dL L 3.5-5.0 04/26/2018 9:35am 04/26/2018 11:14am Globulin 2.8 g/dL 2.3-3.5 04/26/2018 9:35am 04/26/2018 11:14am Albumin/Globulin Ratio 1.1 0.8-2.0 04/26/2018 9:35am 04/26/2018 11: 14am Alkaline Phosphatase 56 IU/L 40-150 04/26/2018 9:35am 04/26/2018 11: 14am Creatine Kinase 62 IU/L 29-168 04/27/2018 5:30am 04/27/2018 6:27am Creatine Kinase MB 0.70 ng/mL 0-5.0 04/27/2018 5:30am 04/27/2018 6: 38am Troponin I < 0.001 ng/mL 0-0.300 04/27/2018 5:30am 04/27/2018 6:38am Procedures Procedure Status Date Provider(s) Computed tomography of brain without radiopaque contrast Active 04/26/18 SATISH MEJIA NP Magnetic resonance imaging of brain without contrast Active 04/27/18 BROOK MARCUM M.D. Encounters Encounter Location Arrival/Admit Date Discharge/Depart Date Attending Provider Discharged Inpatient (obs) [facility] 04/26/18 12:21pm 6:04pm JEERMY CRABTREE MD
--- OUTSIDE RECORDS SUMMARY | 2018-07-05 01:53 | XMS REPORT | Clinical Summary ---
Author Author [facility] Organization [facility] Address Unknown Phone Unavailable Care Team Providers Care Commodity Trader Name Role Phone Braulio Rowan MD PCP Allergies Active Allergy Reactions Severity Noted Date Comments Sulfa (Sulfonamide Anaphylaxis High 10/11/2016 Antibiotics) Current Medications Prescription Sig. Disp. Refills Start End Date Status Date clopidogrel (PLAVIX) 75 Take 75 mg by mouth 3 Active mg tablet (three) times a week. aspirin (ECOTRIN) 81 MG Take 81 mg by mouth Active enteric coated tablet daily. famotidine (PEPCID) 20 MG Take 20 mg by mouth Active tablet nightly as needed for heartburn. rosuvastatin (CRESTOR) 20 Take 20 mg by mouth Active MG tablet daily. donepezil (ARICEPT) 5 MG Take 5 mg by mouth Active tablet nightly. cetirizine (ZyrTEC) 10 MG Take 10 mg by mouth Active tablet daily. ARICEPT 5 mg tablet 01/06/20 Active 18 clopidogrel (PLAVIX) 75 12/19/19 Active mg tablet 18 CRESTOR 20 mg tablet 12/06/19 Active 18 ARICEPT 5 mg tablet 12/05/19 Active 18 metoprolol succinate XL Take 12.5 mg by mouth 10/21/19 Discontin (TOPROL-XL) 25 mg 24 hr daily. 18 ued tablet Active Problems Problem Noted Date Syncope 10/20/2017 Encounters Date Type Specialty Care Team Description 01/18/2018 Emergency Emergency Medicine Jase Calero Episode of shaking MD Fritz (Primary Dx); Nausea and vomiting, intractability of vomiting not specified, unspecified vomiting type 11/04/2017 Emergency Emergency Medicine Dany Beard Fall, initial encounter (Primary Dx); Contusion of left upper extremity, initial encounter; Contusion of right upper extremity, initial encounter; Contusion of face, initial encounter 10/20/2017 Emergency General Internal Medicine Dany Beard, Syncope, unspecified - syncope type (Primary 10/21/2017 Yonas Rowan, Dx); Hypotension, unspecified hypotension type after 05/15/2017 Social History Tobacco Use Types Packs/Day Years Used Date Current Every Day Smoker Cigarettes 0.5 Smokeless Tobacco: Never Used Alcohol Use Drinks/Week oz/Week Comments No Sex Assigned at Date Recorded Not on file Last Filed Vital Signs Vital Sign Reading Time Taken Blood Pressure 126/58 01/18/2018 11:15 PM CDT Pulse 86 01/18/2018 11:15 PM CDT Temperature 36.8 C (98.3 F) 01/18/2018 10:30 PM CDT Respiratory Rate 18 01/18/2018 11:15 PM CDT Oxygen Saturation 95% 01/18/2018 11:15 PM CDT Inhaled Oxygen - - Concentration Weight 60.3 kg (133 lb) 01/18/2018 7:59 PM CDT Height 165.1 cm (5' 5") 01/18/2018 7:59 PM CDT Body Mass Index 22.13 01/18/2018 7:59 PM CDT Plan of Treatment Health Maintenance Due Date Last Done Comments SHINGRIX VACCINE (#1) 1984 ZOSTER VACCINE 1994 PNEUMOCOCCAL 1999 POLYSACCHARIDE VACCINE AGE 65 AND OVER PNEUMOCOCCAL-13 1999 INFLUENZA VACCINE 05/02/2018 Procedures Procedure Name Priority Date/Time Associated Diagnosis Comments CT HEAD WO CONTRAST STAT 01/18/2018 Results for this 10:40 PM CDT procedure are in the results section. URINALYSIS SCREEN AND Routine 01/18/2018 Results for this MICROSCOPY, WITH REFLEX 9:25 PM CDT procedure are in the TO CULTURE results section. URINE CULTURE Routine 01/18/2018 Results for this 9:25 PM CDT procedure are in the results section. XR CHEST 1 VW PORTABLE STAT 01/18/2018 Results for this 8:36 PM CDT procedure are in the results section. ECG 12-LEAD STAT 01/18/2018 Results for this 8:26 PM CDT procedure are in the results section. SMEAR REVIEW STAT 01/18/2018 Results for this 8:24 PM CDT procedure are in the results section. ZZESTIMATED GFR STAT 01/18/2018 Results for this 8:24 PM CDT procedure are in the results section. TROPONIN STAT 01/18/2018 Results for this 8:24 PM CDT procedure are in the results section. COMPREHENSIVE METABOLIC STAT 01/18/2018 Results for this PANEL 8:24 PM CDT procedure are in the results section. HC COMPLETE BLD COUNT STAT 01/18/2018 Results for this W/AUTO DIFF 8:24 PM CDT procedure are in the results section. ECG ED PRELIMINARY Routine 01/18/2018 Results for this INTERPRETATION 8:13 PM CDT procedure are in the results section. XR HUMERUS LEFT STAT 11/04/2017 Results for this 4:06 PM [employer] procedure are in the results section. CT CERVICAL SPINE WO STAT 11/04/2017 Results for this CONTRAST 2:48 PM [employer] procedure are in the results section. CT HEAD WO CONTRAST STAT 11/04/2017 Results for this 2:47 PM [employer] procedure are in the results section. ECG ED PRELIMINARY Routine 10/20/2017 Results for this INTERPRETATION 10:53 PM [employer] procedure are in the results section. LACTIC ACID LEVEL, SEPSIS Timed 10/20/2017 Results for this - NOW AND REPEAT 2X EVERY 4:35 PM [employer] procedure are in the 3 HOURS results section. LACTIC ACID LEVEL, SEPSIS Timed 10/20/2017 Results for this - NOW AND REPEAT 2X EVERY 1:35 PM [employer] procedure are in the 3 HOURS results section. TROPONIN Timed 10/20/2017 Results for this 1:35 PM [employer] procedure are in the results section. URINALYSIS SCREEN AND STAT 10/20/2017 Results for this MICROSCOPY, WITH REFLEX 1:18 PM [employer] procedure are in the TO CULTURE results section. RESPIRATORY PATHOGEN STAT 10/20/2017 Results for this PANEL 12:27 PM [employer] procedure are in the results section. INFLUENZA ANTIGEN Routine 10/20/2017 Results for this 12:10 PM [employer] procedure are in the results section. XR CHEST 1 VW PORTABLE STAT 10/20/2017 Results for this 11:32 AM [employer] procedure are in the results section. BLOOD CULTURE, AEROBIC & Routine 10/20/2017 Results for this ANAEROBIC 10:20 AM [employer] procedure are in the results section. LACTIC ACID LEVEL, SEPSIS STAT 10/20/2017 Results for this - NOW AND REPEAT 2X EVERY 10:15 AM [employer] procedure are in the 3 HOURS results section. PARTIAL THROMBOPLASTIN STAT 10/20/2017 Results for this TIME (PTT) 10:15 AM [employer] procedure are in the results section. PROTHROMBIN TIME WITH INR STAT 10/20/2017 Results for this 10:15 AM [employer] procedure are in the results section. ZZESTIMATED GFR STAT 10/20/2017 Results for this 10:15 AM [employer] procedure are in the results section. B NATRIURETIC PEPTIDE STAT 10/20/2017 Results for this 10:15 AM [employer] procedure are in the results section. TROPONIN STAT 10/20/2017 Results for this 10:15 AM [employer] procedure are in the results section. COMPREHENSIVE METABOLIC STAT 10/20/2017 Results for this PANEL 10:15 AM [employer] procedure are in the results section. HC COMPLETE BLD COUNT STAT 10/20/2017 Results for this W/AUTO DIFF 10:15 AM [employer] procedure are in the results section. BLOOD CULTURE, AEROBIC & Routine 10/20/2017 Results for this ANAEROBIC 10:15 AM [employer] procedure are in the results section. ECG 12-LEAD STAT 10/20/2017 Results for this 9:49 AM [employer] procedure are in the results section. after 05/15/2017 Results * CT Head Wo Contrast (01/18/2018 10:40 PM) Only the most recent of 2 results within the time period is included. Narrative Performed At EXAMINATION: CT HEAD WO CONTRAST [facility] CLINICAL HISTORY: shaking vomiting COMPARISON: 11/04/2017 TECHNIQUE: Noncontrast enhanced images of the brain were obtained from the skull base to the vertex. Both soft tissue and bone reconstruction algorithms were performed. CT imaging was performed with iterative reconstruction technique and/or automated exposure control to reduce radiation dose. IMPRESSION: No intracranial hemorrhage, mass, mass effect, or herniation. No acute osseous abnormalities. Partial opacification of the bilateral maxillary sinuses and of a right ethmoid air cell. Age-related volume loss is seen as characterized by prominence of cerebral sulci and ventricular systems. Periventricular and subcortical white matter hypodensities are seen, compatible with sequelae of chronic small vessel ischemic disease. 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 Conclusion: No acute intracranial abnormalities. Chronic age-related changes and sequelae of chronic small vessel ischemic disease. [facility]-[id number] Procedure Note Interface, Radiology Results Incoming - 01/18/2018 10:48 PM CDT EXAMINATION: CT HEAD WO CONTRAST CLINICAL HISTORY: shaking vomiting COMPARISON: 11/04/2017 TECHNIQUE: Noncontrast enhanced images of the brain were obtained from the skull base to the vertex. Both soft tissue and bone reconstruction algorithms were performed. CT imaging was performed with iterative reconstruction technique and/or automated exposure control to reduce radiation dose. IMPRESSION: No intracranial hemorrhage, mass, mass effect, or herniation. No acute osseous abnormalities. Partial opacification of the bilateral maxillary sinuses and of a right ethmoid air cell. Age-related volume loss is seen as characterized by prominence of cerebral sulci and ventricular systems. Periventricular and subcortical white matter hypodensities are seen, compatible with sequelae of chronic small vessel ischemic disease. 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 Conclusion: No acute intracranial abnormalities. Chronic age-related changes and sequelae of chronic small vessel ischemic disease. [id number] Performing Organization Address City/State/Zipcode Phone Number [facility] [address] [place] [address] * Urinalysis screen and microscopy, with reflex to culture (01/18/2018 9:25 PM) Only the most recent of 2 results within the time period is included. Specimen site Clean catch [facility] DEPARTMENT OF PATHOLOGY AND GENOMIC MEDICINE Color, UA Yellow [facility] DEPARTMENT OF PATHOLOGY AND GENOMIC MEDICINE Appearance, UA Clear [facility] DEPARTMENT OF PATHOLOGY AND GENOMIC MEDICINE Specific gravity, UA 1.012 1.001 - 1.035 [facility] DEPARTMENT OF PATHOLOGY AND GENOMIC MEDICINE pH, UA 7.0 5.0 - 8.5 [facility] DEPARTMENT OF PATHOLOGY AND GENOMIC MEDICINE Protein, UA Negative Negative [facility] DEPARTMENT OF PATHOLOGY AND GENOMIC MEDICINE Glucose, UA Negative Negative [facility] DEPARTMENT OF PATHOLOGY AND GENOMIC MEDICINE Ketones, UA Negative Negative [facility] DEPARTMENT OF PATHOLOGY AND GENOMIC MEDICINE Bilirubin, UA Negative Negative [facility] DEPARTMENT OF PATHOLOGY AND GENOMIC MEDICINE Blood, UA Small (A) Negative [facility] DEPARTMENT OF PATHOLOGY AND GENOMIC MEDICINE Nitrite, UA Negative Negative [facility] DEPARTMENT OF PATHOLOGY AND GENOMIC MEDICINE Urobilinogen, UA Negative <2.0 [facility] DEPARTMENT OF PATHOLOGY AND GENOMIC MEDICINE Leukocyte esterase, UA Negative Negative [facility] DEPARTMENT OF PATHOLOGY AND GENOMIC MEDICINE WBC, UA None seen 0 - 5 /HPF [facility] DEPARTMENT OF PATHOLOGY AND GENOMIC MEDICINE RBC, UA 2 0 - 5 /HPF [facility] DEPARTMENT OF PATHOLOGY AND GENOMIC MEDICINE Bacteria, UA None seen None seen [facility] DEPARTMENT OF PATHOLOGY AND GENOMIC MEDICINE Yeast, UA None seen [facility] DEPARTMENT OF PATHOLOGY AND GENOMIC MEDICINE Yeast with pseudohyphae, None seen [facility] DEPARTMENT OF UA PATHOLOGY AND GENOMIC MEDICINE Specimen Urine Performing Organization Address City/State/Zipcode Phone Number [facility] DEPARTMENT OF [address] [place] [place] [address] PATHOLOGY AND GENOMIC MEDICINE * Urine culture (01/18/2018 9:25 PM) Urine culture SEE COMMENTComment: [facility] DEPARTMENT OF Bacteriuria screen negative. PATHOLOGY AND GENOMIC MEDICINE Specimen Urine Performing Organization Address [facility] Phone Number [facility] DEPARTMENT OF [address] [place] [place] [address] PATHOLOGY AND GENOMIC MEDICINE * XR Chest 1 Vw Portable (01/18/2018 8:36 PM) Only the most recent of 2 results within the time period is included. Narrative Performed At EXAMINATION: XR CHEST 1 VW PORTABLE [facility] CLINICAL HISTORY: SHORTNESS OF BREATH XR CHEST 1 VW PORTABLE images are submitted COMPARISON: 10/20/2017 FINDINGS: The cardiac silhouette is minimally enlarged.. The pulmonary vasculature is within normal limits. The lung zones have no focal area of consolidation. There is no pleural effusion or pneumothorax. IMPRESSION: 1. There is no acute cardiopulmonary disease. 2. Mild cardiomegaly is present. [facility]-[id number] Procedure Note Hm Interface, Radiology Results Incoming - 01/18/2018 8:43 PM CDT EXAMINATION: XR CHEST 1 VW PORTABLE CLINICAL HISTORY: SHORTNESS OF BREATH XR CHEST 1 VW PORTABLE images are submitted COMPARISON: 10/20/2017 FINDINGS: The cardiac silhouette is minimally enlarged.. The pulmonary vasculature is within normal limits. The lung zones have no focal area of consolidation. There is no pleural effusion or pneumothorax. IMPRESSION: 1. There is no acute cardiopulmonary disease. 2. Mild cardiomegaly is present. [facility]-[id number] Performing Organization Address City/[facility]/Zipcode Phone Number [facility] [address] [place] [address] * ECG 12 lead (01/18/2018 8:26 PM) Only the most recent of 2 results within the time period is included. Ventricular rate 89 [facility] Atrial rate 89 [facility] RI interval 168 [facility] QRSD interval 80 [facility] QT interval 346 [facility] QTC interval 420 [facility] P axis 1 64 [facility] QRS axis 1 23 [facility] T wave axis 15 [facility] EKG impression Normal sinus rhythm-Normal [facility] MUSE ECG-In automated comparison with ECG of 20-OCT-2017 09:49,-Vent. rate has increased BY 29 BPM- Performing Organization Address City/State/Zipcode Phone Number [facility] MUSE [address] [place] [address] * Smear review (01/18/2018 8:24 PM) Platelet slide review Eran adequate [facility] DEPARTMENT OF PATHOLOGY AND GENOMIC MEDICINE Anisocytosis 1+ [facility] DEPARTMENT OF PATHOLOGY AND GENOMIC MEDICINE Ovalocytes 1+ [facility] DEPARTMENT OF PATHOLOGY AND GENOMIC MEDICINE Yolis cells Few [facility] DEPARTMENT OF PATHOLOGY AND GENOMIC MEDICINE Enlarged platelets 1+ [facility] DEPARTMENT OF PATHOLOGY AND GENOMIC MEDICINE Elliptocytes Occasional [facility] DEPARTMENT OF PATHOLOGY AND GENOMIC MEDICINE Performing Organization Address City/[facility] Phone Number [facility] [address] [place] [address] PATHOLOGY AND GENOMIC MEDICINE * Estimated GFR (01/18/2018 8:24 PM) Only the most recent of 2 results within the time period is included. GFR Non Af Amer 53 (A) mL/min/1.73 m2 [facility] DEPARTMENT OF PATHOLOGY AND GENOMIC MEDICINE GFR Af Amer 64 mL/min/1.73 m2 [facility] DEPARTMENT OF Comment: PATHOLOGY AND Chronic kidney disease: <60 [facility] MEDICINE mL/min/1.73m2 Kidney failure: <15 mL/min/1.73m2 The estimated GFR is calculated from the IDMS-traceable Modification of Diet in Renal Disease Equation. The accuracy of the calculation is poor when the creatinine is normal. Calculated values >90 mL/min/1.73m2 are not reported. This equation has not been validated in children (<18 years), women, the elderly (>70 years), or ethnic groups other than Caucasians and Americans. Specimen Plasma specimen Performing Organization Address City/State/Zipcode Phone Number [facility] OF [address] [place] [address] PATHOLOGY AND [employer]. [facility] * Troponin (01/18/2018 8:24 PM) Only the most recent of 3 results within the time period is included. Troponin <0.01 0.00 - 0.60 ng/mL [facility] DEPARTMENT OF Comment: PATHOLOGY AND 0.11 - 1.49 GENOMIC MEDICINE ng/ml May indicate increased risk of acute coronary syndrome. >=1.5 ng/ml Consistent with acute myocardial infarction. The diagnostic value of a single normal or non-diagnostic result is questionable. Serial samples at 2-6 hour intervals are required to rule out acute myocardial injury. Specimen Plasma specimen Performing Organization Address City/State/Zipcode Phone Number [facility] [address] [place] [address] PATHOLOGY AND GENOMIC MEDICINE * CBC with platelet and differential (01/18/2018 8:24 PM) Only the most recent of 2 results within the time period is included. WBC 5.7 4.2 - 11.0 k/uL [facility] DEPARTMENT OF PATHOLOGY AND GENOMIC MEDICINE RBC 4.06 4.04 - 5.86 m/uL [facility] DEPARTMENT OF PATHOLOGY AND GENOMIC MEDICINE HGB 11.8 11.5 - 15.3 g/dL [facility] DEPARTMENT OF PATHOLOGY AND GENOMIC MEDICINE HCT 36.2 34.0 - 45.0 % [facility] DEPARTMENT OF PATHOLOGY AND GENOMIC MEDICINE MCV 89.2 80.0 - 98.0 fL [facility] DEPARTMENT OF PATHOLOGY AND GENOMIC MEDICINE MCH 29.1 27.0 - 34.0 pg [facility] DEPARTMENT OF PATHOLOGY AND GENOMIC MEDICINE MCHC 32.6 31.5 - 36.5 g/dL [facility] DEPARTMENT OF PATHOLOGY AND GENOMIC MEDICINE RDW - SD 45.6 37.0 - 51.0 fL [facility] DEPARTMENT OF PATHOLOGY AND GENOMIC MEDICINE MPV 10.5 (H) 7.4 - 10.4 fL [facility] DEPARTMENT OF PATHOLOGY AND GENOMIC MEDICINE Platelet count 201 150 - 400 k/uL [facility] DEPARTMENT OF PATHOLOGY AND GENOMIC MEDICINE Nucleated RBC 0.00 /100 WBC [facility] DEPARTMENT OF PATHOLOGY AND GENOMIC MEDICINE Neutrophils 90.6 (H) 36.0 - 66.0 % [facility] DEPARTMENT OF PATHOLOGY AND GENOMIC MEDICINE Lymphocytes 8.0 (L) 24.0 - 44.0 % [facility] DEPARTMENT OF PATHOLOGY AND GENOMIC MEDICINE Monocytes 0.5 0.0 - 6.0 % [facility] DEPARTMENT OF PATHOLOGY AND GENOMIC MEDICINE Eosinophils 0.3 0.0 - 6.0 % [facility] DEPARTMENT OF PATHOLOGY AND GENOMIC MEDICINE Basophils 0.3 0.0 - 1.2 % [facility] OF PATHOLOGY AND GENOMIC MEDICINE Immature granulocytes 0.3 0.0 - 1.0 % [facility] DEPARTMENT OF PATHOLOGY AND GENOMIC MEDICINE Specimen Blood Performing Organization Address City/State/Zipcode Phone Number [facility] [address] [place] [address] PATHOLOGY AND [employer]. MEDICINE * Comprehensive metabolic panel (01/18/2018 8:24 PM) Only the most recent of 2 results within the time period is included. Sodium 140 135 - 150 mEq/L [facility] DEPARTMENT OF PATHOLOGY AND GENOMIC MEDICINE Potassium 3.5 3.5 - 5.0 mEq/L [facility] DEPARTMENT OF PATHOLOGY AND GENOMIC MEDICINE Chloride 104 100 - 109 mEq/L [facility] DEPARTMENT OF PATHOLOGY AND GENOMIC MEDICINE CO2 26 24 - 32 mmol/L [facility] DEPARTMENT OF PATHOLOGY AND GENOMIC MEDICINE Anion gap 10 7 - 15 mEq/L [facility] DEPARTMENT OF Comment: PATHOLOGY AND Starting from December [facility] , anion gap calculation no longer incorporates potassium. Please note the change. BUN 18 7 - 18 mg/dL [facility] DEPARTMENT OF PATHOLOGY AND GENOMIC MEDICINE Creatinine 1.0 0.8 - 1.5 mg/dL [facility] DEPARTMENT OF PATHOLOGY AND GENOMIC MEDICINE Glucose 84 65 - 100 mg/dL [facility] DEPARTMENT OF PATHOLOGY AND GENOMIC MEDICINE Calcium 8.5 (L) 8.6 - 10.7 mg/dL [facility] DEPARTMENT OF PATHOLOGY AND GENOMIC MEDICINE Protein 6.5 6.3 - 8.2 g/dL [facility] DEPARTMENT OF PATHOLOGY AND GENOMIC MEDICINE Albumin 3.1 (L) 3.2 - 5.0 g/dL [facility] DEPARTMENT OF PATHOLOGY AND GENOMIC MEDICINE A/G ratio 0.9 0.7 - 3.8 [facility] DEPARTMENT OF PATHOLOGY AND GENOMIC MEDICINE Alkaline phosphatase 67 30 - 120 U/L [facility] DEPARTMENT OF PATHOLOGY AND GENOMIC MEDICINE AST 21 15 - 37 U/L [facility] DEPARTMENT OF PATHOLOGY AND GENOMIC MEDICINE ALT 14 (L) 30 - 65 U/L [facility] DEPARTMENT OF PATHOLOGY AND GENOMIC MEDICINE Total bilirubin 0.6 0.2 - 1.2 mg/dL [facility] DEPARTMENT OF PATHOLOGY AND [employer]. MEDICINE Specimen Plasma specimen Performing Organization Address City/State/Zipcode Phone Number [facility] [address] [place] [address] PATHOLOGY AND [employer]. MEDICINE * ECG ED Preliminary Interpretation - NOT AN ORDER (01/18/2018 8:13 PM) Only the most recent of 2 results within the time period is included. Narrative Performed At Jase Calero MD 01/18/2018 11:06 PM ECG ED Preliminary Interpretation - Not an Order Performed by: JASE CALERO Authorized by: JASE CALERO ECG reviewed by ED Physician in the absence of a machine adjuster leader: yes Interpretation: Interpretation: normal Rate: ECG rate: 89 ECG rate assessment: normal Rhythm: Rhythm: sinus rhythm Ectopy: Ectopy: none QRS: QRS axis: Normal QRS intervals: Normal Conduction: Conduction: normal ST segments: ST segments: Normal T waves: T waves: normal * XR Humerus Left (11/04/2017 4:06 PM) Narrative Performed At EXAMINATION: XR HUMERUS LEFT [facility] CLINICAL HISTORY: fall COMPARISON: To previous examination from 05/14/2012 FINDINGS: Marked remodeling related to an old healed fracture femoral neck noted. The bones are osteopenic. There is no evidence of acute fracture or dislocation. IMPRESSION: No evidence of acute fracture or dislocation. [facility]-[id number] Procedure Note Hm Interface, Radiology Results Incoming - 11/04/2017 4:14 PM [employer] EXAMINATION: XR HUMERUS LEFT CLINICAL HISTORY: fall COMPARISON: To previous examination from 05/14/2012 FINDINGS: Marked remodeling related to an old healed fracture femoral neck noted. The bones are osteopenic. There is no evidence of acute fracture or dislocation. IMPRESSION: No evidence of acute fracture or dislocation. [facility]-[id number] Performing Organization Address City/State/Zipcode Phone Number [facility] [address] [place] [address] * CT Cervical Spine Wo Contrast (11/04/2017 2:48 PM) Narrative Performed At EXAMINATION: CT CERVICAL SPINE WO CONTRAST [facility] CLINICAL HISTORY: pain COMPARISON: None. TECHNIQUE: Axial helical CT images throughout the CERVICAL spine were performed without contrast. Sagittal and coronal reformatted images were generated. CT scans are performed using radiation dose reduction techniques. Technical factors are evaluated and adjusted to ensure appropriate moderation of exposure. Automated dose management technology is applied to adjust radiation exposure while achieving a highly diagnostic quality image. FINDINGS: Sagittal image reconstructions demonstrate degenerative disc space narrowing with spondylosis at C6-7 with minimal anterior degenerative subluxation. Axial images demonstrate the following: C1-2: There are no acute abnormalities. C2-3: There is minimal bulging. C3-4: There are bilateral facet joint degenerative changes worse on the right with mild right foraminal stenosis. C4-5: There are bilateral facet joint degenerative changes worse on the right with right foraminal stenosis. C5-6: There are mild bilateral facet joint degenerative changes without stenosis. C6-7: There is mild annular bulging and spondylosis without stenosis. C7-T1: There is no significant bulge or stenosis. There is bilateral apical pleural-parenchymal scarring. There is no definite acute fracture or hematoma. IMPRESSION: Cervical spondylosis as discussed above. Bilateral apical parenchymal and pleural thickening and scarring. No definite acute fracture or prevertebral hematoma. [facility]-[id number] Procedure Note Interface, Radiology Results - 11/04/2017 2:54 PM GAS CONTROLLER EXAMINATION: CT CERVICAL SPINE WO CONTRAST CLINICAL HISTORY: pain COMPARISON: None. TECHNIQUE: Axial helical CT images throughout the CERVICAL spine were performed without contrast. Sagittal and coronal reformatted images were generated. CT scans are performed using radiation dose reduction techniques. Technical factors are evaluated and adjusted to ensure appropriate moderation of exposure. Automated dose management technology is applied to adjust radiation exposure while achieving a highly diagnostic quality image. FINDINGS: Sagittal image reconstructions demonstrate degenerative disc space narrowing with spondylosis at C6-7 with minimal anterior degenerative subluxation. Axial images demonstrate the following: C1-2: There are no acute abnormalities. C2-3: There is minimal bulging. C3-4: There are bilateral facet joint degenerative changes worse on the right with mild right foraminal stenosis. C4-5: There are bilateral facet joint degenerative changes worse on the right with right foraminal stenosis. C5-6: There are mild bilateral facet joint degenerative changes without stenosis. C6-7: There is mild annular bulging and spondylosis without stenosis. C7-T1: There is no significant bulge or stenosis. There is bilateral apical pleural-parenchymal scarring. There is no definite acute fracture or hematoma. IMPRESSION: Cervical spondylosis as discussed above. Bilateral apical parenchymal and pleural thickening and scarring. No definite acute fracture or prevertebral hematoma. [facility]-[id number] Performing Organization Address City/State/Zipcode Phone Number [address] [place] [address] * Lactic acid level, SEPSIS - Now and repeat 2x every 3 hours (10/20/2017 4:35 PM) Only the most recent of 3 results within the time period is included. Lactic acid 1.4 0.5 - 2.2 mmol/L [facility] DEPARTMENT OF PATHOLOGY AND GENOMIC MEDICINE Specimen Blood Performing Organization Address [facility] Phone Number [facility] DEPARTMENT OF [address] [place] [address] PATHOLOGY AND GENOMIC MEDICINE * Respiratory pathogen panel (10/20/2017 12:27 PM) Respiratory pathogen Negative for all pathogens [facility] DEPARTMENT OF panel tested: PATHOLOGY AND Negative for Adenovirus [facility] Negative for Coronavirus HKU1 Negative for Coronavirus NL63 Negative for Coronavirus 229E Negative for Coronavirus OC43 Negative for Human Metapneumovirus Negative for Rhinovirus/Enterovirus Negative for Influenza A Negative for Influenza A/H1 Negative for Influenza A/H3 Negative for Influenza A/H1-2009 Negative for Influenza B Negative for Parainfluenza Virus 1 Negative for Parainfluenza Virus 2 Negative for Parainfluenza Virus 3 Negative for Parainfluenza Virus 4 Negative for Respiratory Syncytial Virus Negative for Bordetella pertussis Negative for Chlamydophila pneumoniae Negative for Mycoplasma pneumoniae This real-time PCR assay detects the presence of nucleic acids (RNA or DNA) for the respiratory pathogens listed. A result of "Not-detected" does not exclude the possibility of the presence of one or more pathogens at concentrations less than the detectable limits of the assay. Comment: Specimen Information Specimen Source: Nasopharyngeal Specimen Site: SWAB Specimen Nasopharyngeal Performing Organization Address [facility] Phone Number [facility] DEPARTMENT OF [address] [place], [place] [phone] PATHOLOGY AND [employer]. MEDICINE * Influenza antigen (10/20/2017 12:10 PM) Influenza antigen Negative for Influenza A/B [facility] DEPARTMENT OF antigen. PATHOLOGY AND Comment: GENOMIC MEDICINE Specimen Information Specimen Source: Nares Specimen Site: Right Specimen Nares - Right Performing Organization Address [facility] Phone Number [facility] [place] [address] [place] [address]. [place] [address] PATHOLOGY AND GENOMIC MEDICINE * Blood culture, aerobic & anaerobic (10/20/2017 10:20 AM) Only the most recent of 2 results within the time period is included. Blood culture isolate No growth after 5 days of [facility] DEPARTMENT OF incubation. PATHOLOGY AND Comment: GENOMIC MEDICINE Specimen Information Specimen Source: Blood Specimen Site: Peripheral Forearm Left Specimen Blood Performing Organization Address [facility] Phone Number [facility] DEPARTMENT OF [address] [place] [phone] PATHOLOGY AND GENOMIC MEDICINE * Partial thromboplastin time, activated (10/20/2017 10:15 AM) PTT 25.9 23.0 - 36.0 sec [facility] DEPARTMENT OF Comment: PATHOLOGY AND PTT therapeutic range for GENOMIC MEDICINE unfractionated heparin is 61.0-112.0 seconds which corresponds to Anti-Xa 0.3-0.7 U/ml. Note: Change in Panic Value The PTT Panic Value is changing from 110 sec. to 100 sec. due to new instrumentation and reagents. Correlation studies have been performed to validate this result. Specimen Blood Performing Organization Address City/[facility] Phone Number [facility] [address] [place] [address] PATHOLOGY AND [employer]. MEDICINE * Prothrombin time with INR (10/20/2017 10:15 AM) Prothrombin time 13.2 12.0 - 15.0 sec [facility] DEPARTMENT OF PATHOLOGY AND [employer]. [facility] INR 0.99 0.92 - 1.12 [facility] DEPARTMENT OF Comment: PATHOLOGY AND For patients on anticoagulant GENOMIC MEDICINE therapy, reference ranges below: Indication: INR Value Treatment of Venous Thrombosis, 2.0-3.0 pulmonary emboli, or prophylaxis of a venous thrombosis, or systemic emboli. High dose, high risk patients 3.0-4.5 with mechanical valves. NOTE: INR values over 3.0 are sometimes associated with gastrointestinal hemorrhage, especially values over 4.0. Specimen Blood Performing Organization Address [facility] Phone Number [facility] [address] [place] [address] PATHOLOGY AND [employer]. MEDICINE * B natriuretic peptide (10/20/2017 10:15 AM) BNP 117 (H) 0 - 100 pg/mL [facility] DEPARTMENT PATHOLOGY AND [employer]. MEDICINE Specimen Blood Performing Organization Address City/State/Zipcode Phone Number [facility] [address] [place] [address] PATHOLOGY AND GENOMIC MEDICINE after 05/15/2017 Insurance Payer Benefit Subscriber ID Type Phone Address Plan / Group HU[employer]NA MEDICARE HUMANA HMO xxxxxxxxx HMO GOLD PLUS MEDICARE [id number] FOR LIFE [address] [place] [id number]
--- OUTSIDE RECORDS SUMMARY | 2018-07-05 01:53 | XMS REPORT ---
Author Author [facility] Address Unknown Phone Unavailable Care Team Providers Care Community Outreach Coordinator Name Role Phone TRACIE JEAN Unavailable Unavailable JEREMY CRABTREE Unavailable Unavailable Problems This patient has no known problems. Allergies, Adverse Reactions, Alerts This patient has no known allergies or adverse reactions. Medications This patient has no known medications. Results Test Description Test Time Test Comments Text Results Atomic Results Result Comments CT ABDOMEN/PELVIS W 2018-05-16 18:05:00 [place] [address] Patient Name: KARY BRODERICK MR #: [id number] : 1935 Age/Sex: 83/F Req #: [id number] Adm Physician: TRACIE JEAN MD Ordered by: TRACIE JEAN MD Report #: [id number] Location: MED/SURG Room/Bed: [facility] Procedure: CT/CT ABDOMEN/PELVIS W Exam Date : 05/16/18 Exam Time: 1610 REPORT STATUS: Signed PROCEDURE: CT ABDOMEN AND PELVIS WITH CONTRAST TECHNIQUE: The abdomen and pelvis were scanned utilizing a multidetector helical scanner from the diaphragm to the lesser trochanter after the IV administration of 100 cc of Isovue 370 and the oral administration of water. Coronal and sagittal multiplanar reformations were obtained. COMPARISON : None. INDICATIONS: lower abdominal pain FINDINGS: Somewhat limited examination due to motion artifact. LOWER THORAX: Bibasilar atelectasis HEPATOBILIARY: No focal hepatic lesions. No radiopaque gallstones. The common bile duct is prominent, measuring 1.1 cm. SPLEEN : No splenomegaly. PANCREAS: No focal masses. The pancreatic duct is prominent, but it is visible all the way to the level of the ampulla. ADRENALS: No adrenal nodules. KIDNEYS/URETERS: No hydronephrosis, stones, or solid mass lesions. There are scarlike opacities in both kidneys. A surgical clip adjacent to the left kidney suggests prior renal surgery. Correlate with history. PELVIC ORGANS/BLADDER: The bladder is collapsed due to the presence of a Bueno catheter. PERITONEUM / RETROPERITONEUM: No free air or fluid. LYMPH NODES: No lymphadenopathy. VESSELS: Severe atherosclerotic calcifications of the aorta and its branches. There is mild ectasia of the infrarenal abdominal aorta measuring up to 2.4 cm. GI TRACT: No distention or wall thickening. There are numerous sigmoid diverticula, but no evidence of acute inflammation. The appendix is normal. 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 Degenerative changes of the right hip. IMPRESSION: No specific findings to account for the patient's lower abdominal pain. The common bile duct is mildly dilated, measuring 1.1 cm. Consider right upper quadrant ultrasound to evaluate for the presence of gallstones. Dictated by: Ade Sinclair M.D. on 05/16/2018 at 18:05 Electronically approved by: Ade Sinclair M.D. on 05/16/2018 at 18:05 Dictated By: ADE SINCLAIR MD 04 Transcribed By: ROBERT on 05/16/181804 COPY TO: TRACIE JEAN MD CHEST SINGLE (PORTABLE) 2018-05-16 03:45:00 [place] [address] Patient Name: KARY BRODERICK MR #: [id number] : 1935 Age/Sex: 83/F Req #: [id number] Adm Physician: Ordered by: JOANNE KAM MD Report #: [id number] Location: ER Room/Bed: ____ Procedure: [id number] DX/CHEST SINGLE (PORTABLE) Exam Date: Exam Time: REPORT STATUS: Signed EXAMINATION: CHEST SINGLE (PORTABLE) INDICATION: Fever. COMPARISON: 04/26/2018 FINDINGS: TUBES and LINES: None. LUNGS: Lungs are well inflated. There are bibasilar atelectasis. There is mild prominence of the central pulmonary vasculature, consistent with pulmonary venous congestion. Biapical scarring present. PLEURA: No pleural effusion or pneumothorax. HEART AND MEDIASTINUM: Cardiac size is mildly enlarged. There are atherosclerotic calcifications within the aorta. BONES AND SOFT TISSUES: No acute osseous lesion. Soft tissues are unremarkable. UPPER ABDOMEN: No free air under the diaphragm. IMPRESSION: No acute thoracic abnormality. Signed by: Dr. Fabio Boswell M.D. on 05/16/2018 3:46 AM Dictated By: FABIO GLASGOW MD 5 Transcribed By: MAHAD on 05/16/18345 COPY TO: JOANNE KAM MD MRI BRAIN WO 2018-04-27 10:27:00 [place] [address] Patient Name: KARY BRODERICK MR #: [id number] : 1935 Age/Sex: 83/F Req #: [id number] Adm Physician: JEREMY CRABTREE MD Ordered by: BROOK MARCUM M.D. Report #: [id number] Location: [facility] Room/Bed: [facility] 182-1 Procedure: [id number] MRI/MRI BRAIN WO Exam Date : Exam Time: REPORT STATUS: Signed ADDENDUM #1 Dose modulation, iterative reconstruction, and/ or weight based adjustment of the mA/kV was utilized to reduce the radiation dose to as low as reasonably achievable. Signed by: DR Rossi Russell M.D. on 05/29/2018 8:17 PM ORIGINAL REPORT History: Possible seizure Comparison studies: CT head 04/26/2018 Technique : Sagittal T2; axial DWI, FLAIR, MPGR, T1, Coronal FLAIR. Intravenous contrast: None Findings: Scalp: Normal in signal . No masses . Bone marrow: Normal in signal intensity. Extra-axial: No masses, no fluid collections. Brain sulci: Mildly prominent diffusely. Moderately prominent bilateral sylvian fissures. Ventricles: Mildly prominent more significant at the temporal horns . No hydrocephalus . Parenchyma: Cortical based T2/flair hyperintensity with associated volume loss at the right frontal and temporal poles. Punctate hemosiderin stain in the left frontal pole. Scattered T2/flair hyperintensities of the periventricular and deep white matter. Similar changes at the polly. No masses, hemorrhage or acute vascular insults. Suprasellar region: No abnormalities. Craniocervical junction: No abnormalities. Patent foramen magnum. No Chiari one malformation. Vessels: Normal flow-voids in the arteries and sinuses. Fluid at the posterior aspect of the left mastoid air cells, related to nonspecific inflammatory changes. Bilateral cataract surgery changes. IMPRESSION: 1. No acute abnormalities. 2. Mild to moderate chronic microvascular ischemic changes of the white matter. 3. Moderate volume loss at the bilateral temporal lobes, which can be seen in some dementias such as Alzheimer's. 4. 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 5. Nonspecific mild inflammatory changes of the left mastoid air cells. Signed by: DR Rossi Russell M.D. on 04/27/2018 10:46 AM Dictated By: ROSSI BARROS MD 16 Transcribed By: MAHAD on 04/27/18 1046 COPY TO: BROOK MARCUM MD CT BRAIN WO 2018-04-26 11:57:00 [place] [address] Patient Name: KARY BRODERICK MR #: [id number] : 1935 Age/Sex: 83/F Req #: [id number] [facility] Physician: JEREMY CRABTREE MD Ordered by: SATISH MEJIA NP Report #: [id number] Location: [facility] Room/Bed: [place] [address] Procedure: [id number] CT/CT BRAIN WO Exam Date: Exam Time: 1105 REPORT STATUS: Signed ADDENDUM #1 Dose modulation, iterative reconstruction, and/or weight based adjustment of the mA/kV was utilized to reduce the radiation dose to as low as reasonably achievable. Signed by: DR Rossi Russell M.D. on 05/29/2018 7:57 PM ORIGINAL REPORT History:Weakness Comparison studies:None Technique: Axial images were obtained from the skull base to the vertex. Coronal and sagittal images reconstructed from the axial data. Intravenous contrast: None Findings: Scalp/skull: No abnormalities. Extra-axial spaces: No masses. No fluid collections. Brain sulci: Mildly prominent. Ventricles: Mild compensatory dilatation. No hydrocephalus. Parenchyma: Scattered small hypodensities in the supratentorial white matter are small vessel ischemic changes. Cortical-based hypodensity with associated volume loss at the right frontal pole/orbitofrontal gyrus and right temporal pole No masses, hemorrhage , acute or chronic cortical vascular insults. Sellar/suprasellar region: No abnormalities. Craniocervical junction: Patent foramen magnum. No Chiari one malformation. Incidental findings: Atherosclerotic calcifications in the carotid siphons . Impression: No acute abnormalities. Chronic findings: 1. Mild generalized volume loss. 2. Mild supratentorial white matter small vessel ischemic changes. 3. 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 on 04/26/2018 12:07 PM Dictated By: ROSSI BARROS MD 1207 COPY TO: SATISH MEJIA NP CHEST SINGLE (PORTABLE) 2018-04-26 11:32:00 [place] [address] Patient Name: KARY BRODERICK MR #: [id number] : 1935 Age/Sex: 83/F Req #: [id number] Adm Physician: Ordered by: SATISH MEJIA NP Report #: [id number] Location: ER Room/Bed: _ Procedure: [id number] DX/CHEST SINGLE (PORTABLE) Exam Date: 04/26/18 Exam Time: 1105 REPORT STATUS: Signed PROCEDURE: A single AP view of the chest. COMPARISON: None. INDICATIONS: PASSED OUT, DEHYDRATED FINDINGS: Exam limited by patient rotation. Lines/tubes: None. Lungs: The lungs are well inflated. Mild prominence of the interstitial markings bilaterally, which may reflect chronic interstitial changes. There is no evidence of consolidation or overt pulmonary edema. Pleura: There is no pleural effusion or pneumothorax. Heart and mediastinum: Cardiac silhouette is unremarkable. Pulmonary vasculature is normal. Bones: No acute bony abnormality. IMPRESSION : 1. No acute cardiopulmonary abnormalities. Keke Whiteside M.D. Dictated by: Keke Whiteside M.D. on 04/26/2018 at 11:32 Electronically approved by: Keke Whiteside M.D. on 04/26/2018 at 11:32 Dictated By: KEKE WHITESIDE MD 1132 Transcribed By: ROBERT on 04/26/18 1132 COPY TO: SATISH MEJIA NP
--- OUTSIDE RECORDS SUMMARY | 2018-07-05 01:54 | XMS REPORT | Clinical Summary ---
Author Author [facility] Organization [facility] Address Unknown Phone Unavailable Care Team Providers Care Core Rescuer Name Role Phone Braulio Rowan MD PCP [...] STAT 11/04/2017 Results for this 4:06 PM ENTRY LEVEL procedure are in the results section. CT CERVICAL SPINE WO STAT 11/04/2017 Results for this CONTRAST 2:48 PM ENTRY LEVEL procedure are in the results section. CT HEAD WO CONTRAST STAT 11/04/2017 Results for this 2:47 PM ENTRY LEVEL procedure are in the results section. ECG ED PRELIMINARY Routine 10/20/2017 Results for this INTERPRETATION 10:53 PM ENTRY LEVEL procedure are in the results section. LACTIC ACID LEVEL, SEPSIS Timed 10/20/2017 Results for this - NOW AND REPEAT 2X EVERY 4:35 PM ENTRY LEVEL procedure are in the 3 HOURS results section. LACTIC ACID LEVEL, SEPSIS Timed 10/20/2017 Results for this - NOW AND REPEAT 2X EVERY 1:35 PM ENTRY LEVEL procedure are in the 3 HOURS results section. TROPONIN Timed 10/20/2017 Results for this 1:35 PM ENTRY LEVEL procedure are in the results section. URINALYSIS SCREEN AND STAT 10/20/2017 Results for this MICROSCOPY, WITH REFLEX 1:18 PM ENTRY LEVEL procedure are in the TO CULTURE results section. RESPIRATORY PATHOGEN STAT 10/20/2017 Results for this PANEL 12:27 PM ENTRY LEVEL procedure are in the results section. INFLUENZA ANTIGEN Routine 10/20/2017 Results for this 12:10 PM ENTRY LEVEL procedure are in the results section. XR CHEST 1 VW PORTABLE STAT 10/20/2017 Results for this 11:32 AM ENTRY LEVEL procedure are in the results section. BLOOD CULTURE, AEROBIC & Routine 10/20/2017 Results for this ANAEROBIC 10:20 AM ENTRY LEVEL procedure are in the results section. LACTIC ACID LEVEL, SEPSIS STAT 10/20/2017 Results for this - NOW AND REPEAT 2X EVERY 10:15 AM ENTRY LEVEL procedure are in the 3 HOURS results section. PARTIAL THROMBOPLASTIN STAT 10/20/2017 Results for this TIME (PTT) 10:15 AM ENTRY LEVEL procedure are in the results section. PROTHROMBIN TIME WITH INR STAT 10/20/2017 Results for this 10:15 AM ENTRY LEVEL procedure are in the results section. ZZESTIMATED GFR STAT 10/20/2017 Results for this 10:15 AM ENTRY LEVEL procedure are in the results section. B NATRIURETIC PEPTIDE STAT 10/20/2017 Results for this 10:15 AM ENTRY LEVEL procedure are in the results section. TROPONIN STAT 10/20/2017 Results for this 10:15 AM ENTRY LEVEL procedure are in the results section. COMPREHENSIVE METABOLIC STAT 10/20/2017 Results for this PANEL 10:15 AM ENTRY LEVEL procedure are in the results section. HC COMPLETE BLD COUNT STAT 10/20/2017 Results for this W/AUTO DIFF 10:15 AM ENTRY LEVEL procedure are in the results section. BLOOD CULTURE, AEROBIC & Routine 10/20/2017 Results for this ANAEROBIC 10:15 AM ENTRY LEVEL procedure are in the results section. ECG 12-LEAD STAT 10/20/2017 Results for this 9:49 AM ENTRY LEVEL procedure are in the results section. after [...] sequelae of chronic small vessel ischemic disease. [id number] Procedure Note Interface, Radiology Results Incoming - [...] sequelae of chronic small vessel ischemic disease. [id number] Performing Organization Address City/State/Zipcode Phone Number DANIEL[facility] [address] [place] [address] * Urinalysis screen and microscopy, with reflex to culture (01/18/2018 9:25 PM) Only the most recent of 2 results within the time period is included. Specimen site Clean catch [facility] DEPARTMENT OF PATHOLOGY AND GENOMIC MEDICINE Color, UA Yellow [facility] DEPARTMENT OF PATHOLOGY AND GENOMIC MEDICINE Appearance, UA Clear [facility] DEPARTMENT OF PATHOLOGY AND GENOMIC MEDICINE Specific gravity, UA 1.012 1.001 - 1.035 [facility] DEPARTMENT OF PATHOLOGY AND GENOMIC MEDICINE pH, UA 7.0 5.0 - 8.5 [facility] DEPARTMENT OF PATHOLOGY AND GENOMIC MEDICINE Protein, UA Negative Negative [facility] DEPARTMENT OF PATHOLOGY AND GENOMIC MEDICINE Glucose, UA Negative Negative [facility] DEPARTMENT OF PATHOLOGY AND GENOMIC MEDICINE Ketones, UA Negative Negative [facility] DEPARTMENT OF PATHOLOGY AND GENOMIC MEDICINE Bilirubin, UA Negative Negative [facility] DEPARTMENT OF PATHOLOGY AND GENOMIC MEDICINE Blood, UA Small (A) Negative [facility] DEPARTMENT OF PATHOLOGY AND GENOMIC MEDICINE Nitrite, UA Negative Negative [facility] DEPARTMENT OF PATHOLOGY AND GENOMIC MEDICINE Urobilinogen, UA Negative <2.0 [facility] DEPARTMENT OF PATHOLOGY AND GENOMIC MEDICINE Leukocyte esterase, UA Negative Negative [facility] DEPARTMENT OF PATHOLOGY AND GENOMIC MEDICINE WBC, UA None seen 0 - 5 /HPF [facility] DEPARTMENT OF PATHOLOGY AND GENOMIC MEDICINE RBC, UA 2 0 - 5 /HPF [facility] DEPARTMENT OF PATHOLOGY AND GENOMIC MEDICINE Bacteria, UA None seen None seen [facility] DEPARTMENT OF PATHOLOGY AND GENOMIC MEDICINE Yeast, UA None seen [facility] DEPARTMENT OF PATHOLOGY AND GENOMIC MEDICINE Yeast with pseudohyphae, None seen [facility] DEPARTMENT OF UA PATHOLOGY AND GENOMIC MEDICINE Specimen Urine Performing Organization Address City/State/Zipcode Phone Number [facility] DEPARTMENT OF [address] [place] [address] PATHOLOGY AND GENOMIC MEDICINE * Urine culture (01/18/2018 9:25 PM) Urine culture SEE COMMENTComment: [facility] DEPARTMENT OF Bacteriuria screen negative. PATHOLOGY AND GENOMIC MEDICINE Specimen Urine Performing Organization Address [facility] Phone Number [facility] DEPARTMENT OF [address] [place] [address] PATHOLOGY AND GENOMIC MEDICINE * XR Chest [...] cardiopulmonary disease. 2. Mild cardiomegaly is present. [id number] Procedure Note Hm Interface, Radiology Results Incoming [...] cardiopulmonary disease. 2. Mild cardiomegaly is present. [id number] Performing Organization Address City/[facility]/Zipcode Phone Number [facility] [address] [place] [address] * ECG 12 lead (01/18/2018 8:26 PM) Only the most recent of 2 results within the time period is included. Ventricular rate 89 [facility] Atrial rate 89 [facility] DE interval 168 [facility] QRSD interval 80 [facility] QT interval 346 [facility] QTC interval 420 [facility] P axis 1 64 [facility] QRS axis 1 23 [facility] T wave axis 15 [facility] EKG impression Normal sinus rhythm-Normal [facility] MUSE ECG-In automated comparison with ECG of 20-OCT-2017 09:49,-Vent. rate has increased BY 29 BPM- Performing Organization Address City/State/Zipcode Phone Number [facility] MUSE [address] [place] [address] * Smear review (01/18/2018 8:24 PM) Platelet slide review Eran adequate [facility] DEPARTMENT OF PATHOLOGY AND GENOMIC MEDICINE Anisocytosis 1+ [facility] DEPARTMENT OF PATHOLOGY AND GENOMIC MEDICINE Ovalocytes 1+ [facility] DEPARTMENT OF PATHOLOGY AND GENOMIC MEDICINE Yolis cells Few [facility] DEPARTMENT OF PATHOLOGY AND GENOMIC MEDICINE Enlarged platelets 1+ [facility] DEPARTMENT OF PATHOLOGY AND GENOMIC MEDICINE Elliptocytes Occasional [facility] DEPARTMENT OF PATHOLOGY AND GENOMIC MEDICINE Performing Organization Address City/[facility] Facility[facility] Phone Number [facility] [address] [place] [address] PATHOLOGY AND GENOMIC MEDICINE * Estimated GFR (01/18/2018 8:24 PM) Only the most recent of 2 results within the time period is included. GFR Non Af Amer 53 (A) mL/min/1.73 m2 [facility] DEPARTMENT OF PATHOLOGY AND GENOMIC MEDICINE GFR Af Amer 64 mL/min/1.73 m2 [facility] DEPARTMENT OF Comment: PATHOLOGY AND Chronic kidney disease: <60 [facility] MEDICINE mL/min/1.73m2 Kidney failure: <15 mL/min/1.73m2 [...] specimen Performing Organization Address City/State/Zipcode Phone Number [facility] OF [address] [place] [address] PATHOLOGY AND [place] [facility] * Troponin (01/18/2018 8:24 PM) Only the [...] specimen Performing Organization Address City/State/Zipcode Phone Number [facility] [address] [place] [address] PATHOLOGY AND GENOMIC MEDICINE * CBC with platelet and differential (01/18/2018 8:24 PM) Only the most recent of 2 results within the time period is included. WBC 5.7 4.2 - 11.0 k/uL [facility] DEPARTMENT OF PATHOLOGY AND GENOMIC MEDICINE RBC 4.06 4.04 - 5.86 m/uL [facility] DEPARTMENT OF PATHOLOGY AND GENOMIC MEDICINE HGB 11.8 11.5 - 15.3 g/dL [facility] DEPARTMENT OF PATHOLOGY AND GENOMIC MEDICINE HCT 36.2 34.0 - 45.0 % [facility] DEPARTMENT OF PATHOLOGY AND GENOMIC MEDICINE MCV 89.2 80.0 - 98.0 fL [facility] DEPARTMENT OF PATHOLOGY AND GENOMIC MEDICINE MCH 29.1 27.0 - 34.0 pg [facility] DEPARTMENT OF PATHOLOGY AND GENOMIC MEDICINE MCHC 32.6 31.5 - 36.5 g/dL [facility] DEPARTMENT OF PATHOLOGY AND GENOMIC MEDICINE RDW - SD 45.6 37.0 - 51.0 fL [facility] DEPARTMENT OF PATHOLOGY AND GENOMIC MEDICINE MPV 10.5 (H) 7.4 - 10.4 fL [facility] DEPARTMENT OF PATHOLOGY AND GENOMIC MEDICINE Platelet count 201 150 - 400 k/uL [facility] DEPARTMENT OF PATHOLOGY AND GENOMIC MEDICINE Nucleated RBC 0.00 /100 WBC [facility] DEPARTMENT OF PATHOLOGY AND GENOMIC MEDICINE Neutrophils 90.6 (H) 36.0 - 66.0 % [facility] DEPARTMENT OF PATHOLOGY AND GENOMIC MEDICINE Lymphocytes 8.0 (L) 24.0 - 44.0 % [facility] DEPARTMENT OF PATHOLOGY AND GENOMIC MEDICINE Monocytes 0.5 0.0 - 6.0 % [facility] DEPARTMENT OF PATHOLOGY AND GENOMIC MEDICINE Eosinophils 0.3 0.0 - 6.0 % [facility] DEPARTMENT OF PATHOLOGY AND GENOMIC MEDICINE Basophils 0.3 0.0 - 1.2 % [facility] OF PATHOLOGY AND GENOMIC MEDICINE Immature granulocytes 0.3 0.0 - 1.0 % [facility] DEPARTMENT OF PATHOLOGY AND GENOMIC MEDICINE Specimen Blood Performing Organization Address City/State/Zipcode Phone Number [facility] [address] [place] [address] PATHOLOGY AND [place] MEDICINE * Comprehensive metabolic panel (01/18/2018 8:24 PM) Only the most recent of 2 results within the time period is included. Sodium 140 135 - 150 mEq/L [facility] DEPARTMENT OF PATHOLOGY AND GENOMIC MEDICINE Potassium 3.5 3.5 - 5.0 mEq/L [facility] DEPARTMENT OF PATHOLOGY AND GENOMIC MEDICINE Chloride 104 100 - 109 mEq/L [facility] DEPARTMENT OF PATHOLOGY AND GENOMIC MEDICINE CO2 26 24 - 32 mmol/L [facility] DEPARTMENT OF PATHOLOGY AND GENOMIC MEDICINE Anion gap 10 7 - 15 mEq/L [facility] DEPARTMENT OF Comment: PATHOLOGY AND Starting from December [facility] , anion gap calculation no longer incorporates potassium. Please note the change. BUN 18 7 - 18 mg/dL [facility] DEPARTMENT OF PATHOLOGY AND GENOMIC MEDICINE Creatinine 1.0 0.8 - 1.5 mg/dL [facility] DEPARTMENT OF PATHOLOGY AND GENOMIC MEDICINE Glucose 84 65 - 100 mg/dL [facility] DEPARTMENT OF PATHOLOGY AND GENOMIC MEDICINE Calcium 8.5 (L) 8.6 - 10.7 mg/dL [facility] DEPARTMENT OF PATHOLOGY AND GENOMIC MEDICINE Protein 6.5 6.3 - 8.2 g/dL [facility] DEPARTMENT OF PATHOLOGY AND GENOMIC MEDICINE Albumin 3.1 (L) 3.2 - 5.0 g/dL [facility] DEPARTMENT OF PATHOLOGY AND GENOMIC MEDICINE A/G ratio 0.9 0.7 - 3.8 [facility] DEPARTMENT OF PATHOLOGY AND GENOMIC MEDICINE Alkaline phosphatase 67 30 - 120 U/L [facility] DEPARTMENT OF PATHOLOGY AND GENOMIC MEDICINE AST 21 15 - 37 U/L [facility] DEPARTMENT OF PATHOLOGY AND GENOMIC MEDICINE ALT 14 (L) 30 - 65 U/L [facility] DEPARTMENT OF PATHOLOGY AND GENOMIC MEDICINE Total bilirubin 0.6 0.2 - 1.2 mg/dL [facility] DEPARTMENT OF PATHOLOGY AND [place] MEDICINE Specimen Plasma specimen Performing Organization Address City/State/Zipcode Phone Number [facility] [address] [place] [address] PATHOLOGY AND [place] MEDICINE * ECG ED Preliminary Interpretation - NOT AN ORDER (01/18/2018 8:13 PM) Only the most recent of 2 results within the time period is included. Narrative Performed At Jase Calero MD 01/18/2018 11:06 PM ECG ED Preliminary Interpretation - Not an Order Performed by: JASE CALERO Authorized by: JASE CLAERO ECG reviewed by ED Physician in the absence of a outside physical damage appraiser: yes Interpretation: Interpretation: normal Rate: ECG rate: [...] No evidence of acute fracture or dislocation. [id number] Procedure Note Hm Interface, Radiology Results Incoming - 11/04/2017 4:14 PM ENTRY LEVEL EXAMINATION: XR HUMERUS LEFT CLINICAL HISTORY: fall COMPARISON: To previous examination from 05/14/2012 FINDINGS: Marked remodeling related to an old healed fracture femoral neck noted. The bones are osteopenic. There is no evidence of acute fracture or dislocation. IMPRESSION: No evidence of acute fracture or dislocation. [facility]-[id number] Performing Organization Address City/State/Zipcode Phone Number [facility] [address] [place] [address] * CT Cervical Spine Wo Contrast (11/04/2017 [...] No definite acute fracture or prevertebral hematoma. [facility]-[id number] Procedure Note Interface, Radiology Results - 11/04/2017 2:54 PM ENTRY LEVEL EXAMINATION: CT CERVICAL SPINE WO CONTRAST CLINICAL [...] No definite acute fracture or prevertebral hematoma. [facility]-[id number] Performing Organization Address City/State/Zipcode Phone Number DANIELLE [address] [place] [address] * Lactic acid level, SEPSIS - Now and repeat 2x every 3 hours (10/20/2017 4:35 PM) Only the most recent of 3 results within the time period is included. Lactic acid 1.4 0.5 - 2.2 mmol/L [facility] DEPARTMENT OF PATHOLOGY AND GENOMIC MEDICINE Specimen Blood Performing Organization Address [facility] Facility[facility] Phone Number [facility] DEPARTMENT OF [address] [facility] [place] [address] PATHOLOGY AND GENOMIC MEDICINE * Respiratory pathogen panel (10/20/2017 12:27 PM) Respiratory pathogen Negative for all pathogens [facility] DEPARTMENT OF panel tested: PATHOLOGY AND Negative for Adenovirus [facility] Negative for Coronavirus HKU1 Negative [...] Site: SWAB Specimen Nasopharyngeal Performing Organization Address [facility] Facility[facility] Phone Number [facility] DEPARTMENT OF [address] [place], [place] [id number] PATHOLOGY AND [place] MEDICINE * Influenza antigen (10/20/2017 12:10 PM) Influenza antigen Negative for Influenza A/B [facility] DEPARTMENT OF antigen. PATHOLOGY AND Comment: GENOMIC MEDICINE Specimen Information Specimen Source: Nares Specimen Site: Right Specimen Nares - Right Performing Organization Address [facility] Facility[facility] Phone Number [facility] [place] [address] [place] [address]. [place] [address] PATHOLOGY AND GENOMIC MEDICINE * Blood culture, aerobic & anaerobic (10/20/2017 10:20 AM) Only the most recent of 2 results within the time period is included. Blood culture isolate No growth after 5 days of [facility] DEPARTMENT OF incubation. PATHOLOGY AND Comment: GENOMIC MEDICINE Specimen Information Specimen Source: Blood Specimen Site: Peripheral Forearm Left Specimen Blood Performing Organization Address [facility] Facility[facility] Phone Number [facility] DEPARTMENT OF [address] [place] [address] PATHOLOGY AND GENOMIC MEDICINE * Partial thromboplastin time, activated (10/20/2017 10:15 AM) PTT 25.9 23.0 - 36.0 sec [facility] DEPARTMENT OF Comment: PATHOLOGY AND PTT therapeutic range for GENOMIC MEDICINE unfractionated heparin is 61.0-112.0 seconds which corresponds to Anti-Xa 0.3-0.7 U/ml. Note: Change in Panic Value The PTT Panic Value is changing from 110 sec. to 100 sec. due to new instrumentation and reagents. Correlation studies have been performed to validate this result. Specimen Blood Performing Organization Address City/[facility] Facility[facility] Phone Number [facility] [address] [facility] [place] [address] PATHOLOGY AND [place] MEDICINE * Prothrombin time with INR (10/20/2017 10:15 AM) Prothrombin time 13.2 12.0 - 15.0 sec [facility] DEPARTMENT OF PATHOLOGY AND [place] [facility] INR 0.99 0.92 - 1.12 [facility] DEPARTMENT OF Comment: PATHOLOGY AND For patients on anticoagulant GENOMIC MEDICINE therapy, reference ranges below: Indication: INR Value Treatment of Venous Thrombosis, 2.0-3.0 pulmonary emboli, or prophylaxis of a venous thrombosis, or systemic emboli. High dose, high risk patients 3.0-4.5 with mechanical valves. NOTE: INR values over 3.0 are sometimes associated with gastrointestinal hemorrhage, especially values over 4.0. Specimen Blood Performing Organization Address [facility] Facility[facility] Phone Number [facility] [address] [facility] [place] [address] PATHOLOGY AND [place] MEDICINE * B natriuretic peptide (10/20/2017 10:15 AM) BNP 117 (H) 0 - 100 pg/mL [facility] DEPARTMENT PATHOLOGY AND [place] MEDICINE Specimen Blood Performing Organization Address City/State/Zipcode Phone Number [facility] [address] [facility] [place] [address] PATHOLOGY AND GENOMIC MEDICINE after 05/15/2017 Insurance Payer Benefit Subscriber ID Type Phone Address Plan / Group HU[employer]NA MEDICARE HUMANA HMO xxxxxxxxx HMO GOLD PLUS MEDICARE [id number] FOR LIFE [address] [place] [id number]
== END 2018-05-18 16:35 | disposition home or self-care (01) | DRG 872 ==
LOC: ER 02:34 → ERHOLD 04:52 → MED/SURG2 05:24
DX: A41.89 Other specified sepsis (principal); N39.0 Urinary tract infection, site not specified; J44.9 Chronic obstructive pulmonary disease, unspecified; I73.9 Peripheral vascular disease, unspecified; E03.9 Hypothyroidism, unspecified; M19.90 Unspecified osteoarthritis, unspecified site
CPT/HCPCS: 36415; 51700; 71045; 74177; 80048; 80053; 81001; 82550; 82553; 83605; 83880; 84484; 85025; 87040; 87086; 93005; 94640; 99284; J0696; J2405; J7030; Q9967